=== PATIENT | female | born 1945 | race Caucasian/White ===

== ENCOUNTER 2017-10-12 17:18 | Inpatient (IN) | payer MEDICARE ==
[2017-10-12] MEDS ORDERED: Magnesium Sulfate 2 GM/100 ML BAG ONE (17:59)
[2017-10-12] MEDS ORDERED: Bisacodyl 5 MG TAB PO PRN (20:09)
[2017-10-12] MEDS ORDERED: Loratadine 10 MG TAB PO PRN (20:09)
[2017-10-12] MEDS ORDERED: Diabetic Tussin 200 MG/10 ML UDCUP PO PRN (20:09)
[2017-10-12] MEDS ORDERED: Acetaminophen 325 MG TAB PO PRN (20:09)
[2017-10-12] MEDS ORDERED: Calcium Carbonate 500 MG ChewTAB PO PRN (20:09)
[2017-10-12] MEDS ORDERED: Senokot 8.6 MG TAB PO PRN (20:09)
[2017-10-12] MEDS ORDERED: hydrALAZINE 20 MG/ML VIAL SLOW IVP PRN (20:09)
[2017-10-12] MEDS ORDERED: Nitroglycerin 0.4 MG TAB (25 Tab Bottle) SL PRN (20:09)
[2017-10-12] MEDS ORDERED: cloNIDine 0.1 MG TAB PO PRN (20:09)
[2017-10-12] MEDS ORDERED: Benzonatate 100 MG CAP PO PRN (20:09)
[2017-10-12] MEDS ORDERED: Ondansetron HCl/PF 4 MG/2 ML Vial IVP PRN (20:09)
[2017-10-12] MEDS ORDERED: Mag-Al 1200 mg/1200 mg/30 ML UDCUP PO PRN (20:09)
[2017-10-12] MEDS ORDERED: traMADol HCl 50 MG TAB PO PRN (20:09)
[2017-10-12] MEDS: Famotidine 20 MG TAB PO SCH (20:33)
--- NOTE | 2017-10-12 21:59 | HP ---
PRIMARY CARE PHYSICIAN: Dr. Juliano Chin. PRIMARY VISUALIZER: Dr. Dexter Figueroa. CHIEF COMPLAINT: Shortness of breath. HISTORY OF PRESENTING ILLNESS: Ms. Hugo is a very pleasant 72-year-old female with past m edical history of chronic obstructive pulmonary disease, hypertension and malnutrition, who presented to [facility] with the above-mentioned complaint. History is mainly obtained by the p atient herself and electronic medical records have been reviewed. Case has been discussed with the a dmitting ER physician, Dr. Gar. The patient was last admitted to our facility in 10/2016 and was discharged on 11/22/2016. At that time, she was treated for acute hypoxic respiratory failure due t o chronic obstructive pulmonary disease exacerbation. Reportedly, the patient went home on hospice a t that time, but later was discharged from the hospice services, which she did not need according to herself. She reports that she was on oxygen with hospice, but when the hospice services were discont inued oxygen was also discontinued. She reports that normally her oxygen saturation is in high 90s. Today, she presented via EMS to [facility]. She reports that she has some cough with c lear phlegm for the last few days. She reports congestion and feeling feverish. She started to have worsening shortness of breath for the last 2 days. She denies any chest pain. She denies any other recent illnesses. She denies any orthopnea, PND or edema. It is unclear what her oxygen saturation was in [facility]. She was transferred to our emergency room with 48 hours oxygen and her saturation was 96%. She has received multiple nebulizer s as well as IV steroids and magnesium oxide of her possible COPD exacerbation. She is being admitte d for same. Reportedly, her chest x-ray did not show any infiltrate or edema. The patient reports t hat she has been taking her nebulizers and Symbicort regularly without any benefit in her breathing. She also has heard herself wheezing significantly. I discussed the CODE STATUS once again for this patient. Previously, she has been a do not intubate, but after some discussion at this time; she wanted to be a FULL CODE if it needs to be. PAST MEDICAL HISTORY: 1. COPD. 2. Hypertension. 3. Protein-calorie malnutrition. 4. History of failure to thrive. 5. History of colonic polyps, status post resection. 6. History of syncopal episodes in the past. 7. History of tobacco abuse. PAST SURGICAL HISTORY: 1. Oral surgery. 2. Hernia repair. 3. History of polyp removal. 4. History of EGD showing chronic inactive gastritis and focal intestinal metaplasia. 5. Appendectomy. 6. Hysterectomy. 7. Carpal tunnel surgery. SOCIAL HISTORY: She lives in [place]. The patient is a former tobacco abuser and has smoked multi ple years. She quit smoking in 10/2016. No history of drug or alcohol abuse. ALLERGIES: PENICILLIN, SULFA and CEPHALOSPORINS. CURRENT MEDICATIONS: As listed in the ER records. These are incomplete and would need to be further verified through her pharmacy in the morning. She takes the following, Exforge, unknown dose; potas sium gluconate 1 tablet in the morning; prednisone 10 mg in the morning; digoxin, unknown dose and Sy mbicort twice a day. FAMILY HISTORY: Denies any history of cardiac disease or premature cardiac . Denies any histor y of cancer or stroke. REVIEW OF SYSTEMS: It is difficult to obtain due to the patient's tiredness and difficulty with long conversation, but she feels much better now. It is negative except for those mentioned under HPI. Constitutional: Weight loss or gain, ability to conduct usual activities. Skin: Rash, itching. Eyes: Double vision, pain. ENT/Mouth: Nose bleeding, neck stiffness, pain, tenderness. Cardiovascular: Palpitations, dyspnea on exertion, orthopnea. Respiratory: Shortness of breath, wheezing, cough, hemoptysis, fever or night sweats. Gastrointestinal: Poor appetite, abdominal pain, heartburn, nausea, vomiting, constipation, or diarr hea. Genitourinary: Urgency, frequency, dysuria, nocturia. Musculoskeletal: Pain, swelling. Neurologic/Psychiatric: Anxiety, depression. Allergy/Immunologic: Skin rash, bleeding tendency. PHYSICAL EXAMINATION: VITAL SIGNS: Most recent vital signs include blood pressure 115/84, pulse of 108, respirations 22, t emperature 98.8, saturating 96% on 2 liters oxygen now. GENERAL: No acute distress. She is sitting upright in bed and having some mild respiratory distress with conversation, but is awake, alert and oriented x3. She appears thin and malnourished. HEENT: Mucous membrane is moist and pink. No oropharyngeal exudate or erythema. NECK: Supple without any lymphadenopathy, JVD or bruit. CHEST: Reveal decreased breath sounds bilaterally without any significant wheezes, rales or rhonchi. CARDIOVASCULAR: She is tachycardic and regular. Normal S1 and S2 heard. ABDOMEN: Soft, nontender and nondistended with positive bowel sounds. EXTREMITIES: Free of any cyanosis, clubbing or edema. NEUROLOGIC: Nonfocal. SKIN: Free of any rashes or bruises. Feels warm and dry to touch. PSYCHIATRIC: Normal affect. LABORATORY DATA: Reportedly, [facility] records showed normal lab values. I do not have access to jennifer [facility] reports unfortunately at this time. IMPRESSION AND PLAN: 1. Acute respiratory failure. This is secondary to acute chronic obstructive pulmonary disease exac erbation. The patient is being admitted to Intermediate Care Unit for this reason. At this time, brigitte rodriguez is a FULL CODE. Her symptoms have improved after the initial intervention in the emergency room. At this time, we will continue with IV steroids, IV antibiotics scheduled and p.r.n. nebulizers along with long-acting inhaled steroids. We will obtain a pulmonary consultation in the morning. She kennedy l be continued on continuous oxygen supplementation. If her symptoms worsen; we will start her on Bi PAP. 2. History of hypertension. We will restart her home medications once confirmed. 3. Severe protein-calorie malnutrition, BMI undetermined. At this time, the patient will be started on dietary supplements. She has had outpatient workup for this. Etiology is unclear. She will con tinue to follow up with her primary care physician. 4. Deep venous thrombosis and gastrointestinal prophylaxis. 5. Add p.r.n. medication orders. 6. CODE STATUS: FULL CODE discussed with the patient. DISPOSITION: Ms. Hugo is being admitted to [facility] for acute respiratory failure due to chronic obstru ctive pulmonary disease exacerbation. Further management will depend upon her clinical course. Michelle mated length of stay at this time is at least 2-3 midnights.
[2017-10-13 05:29] LABS: #Lymphocytes 0.3 thou/uL (1.20-3.40); #Monocytes 0.2 thou/uL (0.11-0.59); #Neutrophils 5.5 thou/uL (1.40-6.50); %Eosinophils 0.2 % (0.0-10.0); %Lymphocytes 5.5 % (21.0-51.0); %Monocytes 3.5 % (0.0-10.0); Hematocrit 41.8 % (36.0-47.0); Mean Platelet Volume 7.4 fL (7.4-10.4); Red Blood Cell (RBC) Count 4.49 mill/uL (4.20-5.40); White Blood Cell (WBC) Count 6.1 thou/uL (4.8-10.8)
[2017-10-13 05:50] LABS: Anion Gap 14 mmol/L (10-20); BUN (Urea Nitrogen) 13 mg/dL (9.8-20.1); Calc. Creatinine Clearance 60 mL/min (70-130); Calcium 9.2 mg/dL (7.8-10.44); Carbon Dioxide 23 mmol/L (23-31); Chloride 95 mmol/L (98-107); Estimated GFR-MDRD Greater than 90
[2017-10-13] MEDS: Mometasone/Formoterol 120 PUFF INHALER INH SCH ×2 (06:35→19:27)
[2017-10-13] MEDS ORDERED: cloNIDine 0.1 MG TAB PO PRN (07:25)
[2017-10-13] MEDS ORDERED: hydrOXYzine 10 MG TAB PO PRN (07:25)
[2017-10-13] MEDS: Diabetic Tussin 200 MG/10 ML UDCUP PO SCH ×4 (08:39→20:35)
[2017-10-13] MEDS: Diltiazem HCl SR 60 mg Capsule PO SCH (08:40)
[2017-10-13] MEDS: Vitami E (Dl,Tocopheryl Acet) 400 UNITS CAP PO SCH (08:41)
[2017-10-13] MEDS: Amlodipine 10 MG TAB PO SCH ×2 (08:44→12:17)
[2017-10-13] MEDS: Famotidine 20 MG TAB PO SCH ×2 (08:44→20:35)
[2017-10-13] MEDS: Fluticasone Propionate Nasal Spray 16 gm Bottle NASAL SCH (08:44)
[2017-10-13] MEDS: Digoxin 0.125 MG TAB PO SCH ×2 (08:44→09:15)
[2017-10-13] MEDS: Valsartan 80 MG TAB PO SCH ×2 (08:45→12:17)
[2017-10-13] MEDS: Enoxaparin Sodium 40 MG/0.4 ML SYRINGE SC SCH (08:47)
[2017-10-13] MEDS: Sodium Chloride 0.9% 1,000 ML IV SCH ×2 (09:10→20:36)
[2017-10-13] MEDS ORDERED: Magnesium 2 GM/NS 0.9% 100 ML 2 GM in Premix Bag 1 BAG IVPB SCH (11:30)
--- NOTE | 2017-10-13 11:54 | CON ---
DATE OF CONSULTATION: 10/13/2017 HISTORY: Aissatou Hugo is a 72-year-old female, a patient of Dr. Figueroa's who presents to the hospital with increasing shortness of breath, cough, congestion, unresponsive to usual medication at home. She called Dr. Chin who apparently told her to come to the hospital. MEDICATIONS FROM HOME: Include Ventolin inhaler, Catapres 0.1, DuoNebs, Symbicort, digoxin 0.25, aml odipine 10, prednisone 10, Atarax, Cardizem 60, Flonase. She continues to drink 3 beers a day. Quit smoking in October of last year. She has severe limitation to activity. PAST MEDICAL HISTORY: Chronic lung disease, COPD, asthma, alcohol abuse. PAST SURGICAL HISTORY: A loop recorder was seen on the chest x-ray, hysterectomy, appendectomy. REVIEW OF SYSTEMS: Otherwise unremarkable. PHYSICAL EXAMINATION: GENERAL: Mild distress. VITAL SIGNS: Blood pressure is 190/80, pulse 108, O2 sat 94%. CHEST: Chest revealed diffuse wheezing. CARDIAC: Sinus tachycardia. ABDOMEN: Soft, no masses. LABORATORY: Sodium 128, chronic, white count 6000, H&H 13 and 41, glucose 141. X-ray shows no acute infiltrates except for the loop recorder. IMPRESSION: 1. Chronic obstructive pulmonary disease exacerbation. 2. Bronchitis. 3. Former smoker. 4. Alcohol abuse. 5. Hyponatremia, chronic. PLAN: Empiric antibiotics have been initiated. Continue IV steroids, neb treatments, Dulera. I ord ered magnesium. I have increased the frequency of Nebs to q.4h. X-ray was read as a new infiltrate . I am not so sure she has a new infiltrate, though x-ray was taken elsewhere. I do not see an x-ra y on the computer here. Will notify Dr. Figueroa tomorrow.
--- NOTE | 2017-10-13 12:19 | PRG ---
DATE OF SERVICE: 10/13/2017 SUBJECTIVE: The patient seen and examined at the bedside. She is in IMCU B12, but she is still very short of breath and tired. She has some deep productive cough. Her appetite is fair. OBJECTIVE: VITAL SIGNS: Blood pressure is 165/90, pulse is 115, pulse oximetry is 97% on O2 by nasal cannula. GENERAL: She looks tired and exhausted. HEENT: Atraumatic, normocephalic. Eyes: Pupils are responding properly. Sclerae is nonicteric. C onjunctivae pinkish. Oral mucosa is somewhat dry. NECK: Supple, no lymphadenopathy. LUNGS: Bilateral rales present. Few wheezes bilaterally present too. No crackles. HEART: S1, S2, tachycardic. No S3, no S4, somewhat distant. No murmur. ABDOMEN: Soft, nontender, bowel sounds are present, no organomegaly. EXTREMITIES: No clubbing, cyanosis or edema. NEUROLOGIC: She is alert and oriented x4. There is no sensory or motor deficits present. Cranial n erves are intact. SKIN: No rash or erythema. LABORATORY DATA: White count of 6.1, hemoglobin of 13.9, hematocrit 41.8, platelet count is 256, jesus trophils 90.8. Sodium is 128, potassium 4.1, chloride 95, BUN 13, creatinine 0.62, glucose 141. The rest of chemistry within normal limits. MICROBIOLOGY: None. IMPRESSION: 1. Acute exacerbation of chronic obstructive pulmonary disease which was triggered by some viral upp er respiratory tract infection. 2. Hyponatremia and hypochloremia. This could be related to volume depletion. We started her on in travenous fluids. 3. History of hypertension. Blood pressure is elevated and we are going to restart her amlodipine a nd digoxin. 4. Sinus tachycardia. This could be related to her nebulizer she is on now. 5. Severe protein calorie malnutrition with probably related to her advanced chronic obstructive pul monary disease. PLAN: She is going to continue on her current regimen of her IV steroids, inhaled steroids and Levaq uin. She will be restarted on her home meds. We will continue PT. Dr. Figueroa will see her for pulmon eddie consultation. We will give her normal saline at 100 mL per hour and she will continue on DVT and PUD prophylaxis.
[2017-10-13 13:09] LABS: Oxyhemoglobin 95.4 % (94.0-97.0); Sodium 131 mmol/L (135-148)
[2017-10-13 13:11] LABS: Mode 3L/M NASAL CANNULA
[2017-10-13] MEDS: Albuterol Sulfate 2.5 mg/3 ml Neb NEB SCH ×5 (13:49→21:46)
[2017-10-13] MEDS: Lorazepam 1 MG TAB PO PRN (21:39)
[2017-10-14] MEDS: Diabetic Tussin 200 MG/10 ML UDCUP PO SCH ×6 (00:02→20:41)
[2017-10-14] MEDS: Albuterol Sulfate 2.5 mg/3 ml Neb NEB SCH ×6 (00:08→09:39)
[2017-10-14] MEDS: Sodium Chloride 0.9% 1,000 ML IV SCH ×3 (05:52→21:00)
[2017-10-14] MEDS: Mometasone/Formoterol 120 PUFF INHALER INH SCH ×2 (06:27→19:25)
[2017-10-14 08:22] LABS: #Lymphocytes 0.5 thou/uL (1.20-3.40); #Monocytes 0.5 thou/uL (0.11-0.59); #Neutrophils 8.2 thou/uL (1.40-6.50); %Eosinophils 0.1 % (0.0-10.0); %Lymphocytes 4.9 % (21.0-51.0); %Monocytes 5.2 % (0.0-10.0); Hematocrit 43.7 % (36.0-47.0); Red Blood Cell (RBC) Count 4.65 mill/uL (4.20-5.40); White Blood Cell (WBC) Count 9.1 thou/uL (4.8-10.8)
[2017-10-14 08:41] LABS: Anion Gap 12 mmol/L (10-20); BUN (Urea Nitrogen) 14 mg/dL (9.8-20.1); Calc. Creatinine Clearance 59 mL/min (70-130); Calcium 9.4 mg/dL (7.8-10.44); Carbon Dioxide 25 mmol/L (23-31); Chloride 99 mmol/L (98-107); Estimated GFR-MDRD Greater than 90
--- NOTE | 2017-10-14 08:42 | PRG ---
DATE OF SERVICE: 10/14/2017 SUBJECTIVE: The patient is seen and examined at bedside. She is feeling slightly better. Her short ness of breath slightly improved, but it is still very significant despite of all measures. She did not have any bowel movements for the last couple of days. We will wait until tomorrow since she did not eat much in the last few days. OBJECTIVE: VITAL SIGNS: Blood pressure is 177/85, pulse is 96.5, respiratory rate is 22, pulse is 118, O2 satur ation is 92% on 3 liters by nasal cannula. GENERAL: She looks sick and tired, but slightly better than yesterday. HEENT: Eyes: Pupils are responding to light properly. Sclerae is nonicteric. Oral mucosa is moist . NECK: Supple. LUNGS: Bilateral rales and wheezes present. Mild to moderate. CARDIOVASCULAR: S1, S2, tachycardic, no S3, no S4. ABDOMEN: Soft, nontender, nondistended. EXTREMITIES: No clubbing, cyanosis or edema. NEUROLOGIC: Intact. LABORATORY DATA: Showed ABGs; pH of 7.42, pCO2 of 37.8, pO2 84.3, base excess -0.5, sodium of 131, p otassium 3.8, chloride 91, ionized calcium 1.2. CBC and BMP are pending this morning. MICROBIOLOGY: None. IMPRESSION: 1. Acute exacerbation of chronic obstructive pulmonary disease triggered by viral upper respiratory tract infection, somewhat better, but still in very serious condition, although her ABG is showing th at she is oxygenating well and she is not retaining any CO2. Yesterday, director of corporate communications increased the frequency of her DuoNeb to every 2 hours and she was given magnesium, which probably resulted in a be tter respiratory drive. 2. Hyponatremia and hypochloremia, based on ABGs, it is better. We will slow down her IV fluids to 75 mL per hour on normal saline. We will obtain CBC and BMP this morning. 3. Sinus tachycardia, which is related to most likely medications with agonist use. 4. Severe protein calorie malnutrition and history of alcohol abuse, most likely this is multifactor ial since she has chronic illness and she is receiving some additional nutrition. 5. History of hypertension, which is labile and she is back on her digoxin and amlodipine. PLAN: Continue her current regimen. We will see what director of corporate communications has to do over on the top of her quite intense regimen and we will continue her nutritional supplementation and IV fluids. She will continue on deep venous thrombosis prophylaxis with Lovenox and peptic ulcer disease prophylaxis with H2 karla.
[2017-10-14] MEDS: Fluticasone Propionate Nasal Spray 16 gm Bottle NASAL SCH (09:02)
[2017-10-14] MEDS: Vitami E (Dl,Tocopheryl Acet) 400 UNITS CAP PO SCH (09:02)
[2017-10-14] MEDS: Diltiazem HCl SR 60 mg Capsule PO SCH (09:03)
[2017-10-14] MEDS: Digoxin 0.125 MG TAB PO SCH (09:03)
[2017-10-14] MEDS: Enoxaparin Sodium 40 MG/0.4 ML SYRINGE SC SCH (09:04)
[2017-10-14] MEDS: Famotidine 20 MG TAB PO SCH ×2 (09:04→20:41)
[2017-10-14] MEDS: VALSARTAN PO SCH (09:04)
[2017-10-14] MEDS: AMLODIPINE PO SCH (09:04)
[2017-10-14] MEDS: Lorazepam 1 MG TAB PO PRN (09:09)
[2017-10-14] MEDS ORDERED: Magnesium Sulfate 3 GM in Sodium Chloride 0.9% 100 ML IVPB SCH (11:30)
[2017-10-14] MEDS: Morphine PF 1 MG/ML SYR IVP PRN (15:11)
--- NOTE | 2017-10-14 17:50 | PRG ---
DATE OF SERVICE: 10/14/2017 SUBJECTIVE: Ms. Hugo is afebrile. OBJECTIVE: VITAL SIGNS: Heart rate is 91, it was 113 earlier. Respiratory rate is in the teens. Oximetry is i n the mid 90s. LUNGS: Clear and distant with a prolonged expiratory phase. HEART: Regular rhythm. ABDOMEN: Soft. LABORATORY DATA: White count 9.1, hemoglobin 14.3 and platelets 298,000. Sodium 132, potassium 3.8, chloride 99, bicarbonate 25, BUN 14 and creatinine 0.6. Blood gas yesterday 7.42, CO2 of 37 and PO2 of 84. IMPRESSION: 1. Chronic obstructive pulmonary disease exacerbation. 2. Recent tobacco use. 3. Severe anxiety. 4. History of heavy alcohol use in the past if I recall correctly. I feel she would benefit from noninvasive ventilation assistance. She does not like frequent nebulizer treatments. I recalled correctly morphine worked really well fo r her in the past with her anxiety associated with shortness of breath, so this has been ordered. I ordered some more magnesium. We will continue nebulized treatments, steroids. We will order an x-ra y for in the morning shows a DNR with hospice for a while, but this was rescinded, I have seen her fe w times in the office, then she had cut back significantly on her alcohol intake. She also was not s moking until recently.
[2017-10-15] MEDS: Diabetic Tussin 200 MG/10 ML UDCUP PO SCH ×5 (00:34→20:32)
[2017-10-15] MEDS: Morphine PF 1 MG/ML SYR IVP PRN ×5 (06:48→20:21)
[2017-10-15] MEDS: VALSARTAN PO SCH (09:32)
[2017-10-15] MEDS: AMLODIPINE PO SCH (09:32)
[2017-10-15] MEDS: Digoxin 0.125 MG TAB PO SCH (09:33)
[2017-10-15] MEDS: Diltiazem HCl SR 60 mg Capsule PO SCH (09:33)
[2017-10-15] MEDS: Fluticasone Propionate Nasal Spray 16 gm Bottle NASAL SCH (09:34)
[2017-10-15] MEDS: Enoxaparin Sodium 40 MG/0.4 ML SYRINGE SC SCH (09:34)
[2017-10-15] MEDS: Famotidine 20 MG TAB PO SCH ×2 (09:34→20:33)
[2017-10-15] MEDS: Vitami E (Dl,Tocopheryl Acet) 400 UNITS CAP PO SCH (09:35)
--- NOTE | 2017-10-15 10:32 | PRG ---
DATE OF SERVICE: 10/15/2017 SUBJECTIVE: The patient was seen and examined at bedside. She was placed on BiPAP yesterday. She i s still on it. She desaturates very quickly when the mask is off, so she did not get much nutrition since she was placed on a mask since yesterday. OBJECTIVE: VITAL SIGNS: Blood pressure is 142/87, pulse is 106, temperature is 97.5, respiratory rate 12, O2 sa turation 98%. She is on BiPAP 12/5 with respiratory rate 16. HEENT: Her pupils are responding to light properly. Sclerae is nonicteric. Conjunctivae are pinkis h. LUNGS: Emphysematous. No wheezing, no rales. HEART: S1, S2, somewhat tachycardic, no S3, no S4. ABDOMEN: Soft and nontender. EXTREMITIES: No clubbing, cyanosis, or edema. NEUROLOGIC: She is awake and alert. She follows my commands. She is able to move her all 4 extremi ties. LABORATORY DATA: None. IMPRESSION: 1. Acute exacerbation of chronic obstructive pulmonary disease. The patient is on full regimen. Gerard rodriguez is on DuoNebs. She is on methylprednisolone 40 mg q.6 h. She is on intact steroids. She is on mo rphine 2 mg IV push q.2 h p.r.n. and despite all of these treatments, she required BiPAP. This is ma gregoria per cost analyst. 2. Hyponatremia and hypochloremia. We will obtain basic metabolic panel this morning to assess this . For now, we will continue her IV fluids normal saline at 75 mL per hour. 3. Sinus tachycardia related to nebulizers and most likely some hypoxic state. 4. Severe protein calorie malnutrition and history of alcohol abuse. No signs of alcohol withdrawal . We will give her banana bag to replace her missing minerals and electrolytes. 5. History of hypertension. The patient is back on her calcium channel karla and digoxin. PLAN: So plan is to continue current regimen, continue DVT prophylaxis with Lovenox. Continue PUD p rophylaxis with Pepcid.
[2017-10-15] MEDS: Mometasone/Formoterol 120 PUFF INHALER INH SCH ×2 (10:34→19:16)
--- NOTE | 2017-10-15 11:05 | RAD ---
FRONTAL RADIOGRAPH CHEST PORTABLE UPRIGHT: Date: 10/15/17 COMPARISON: 11/16/16. HISTORY: Respiratory distress. FINDINGS: A loop recorder overlies the left hilum. There is atherosclerotic calcification of the aortic arch. Lungs are hyperinflated with increased linear interstitial density noted bilaterally. These findings are unchanged. There is no pneumothorax, lobar consolidation, or alveolar edema. IMPRESSION: Stable pulmonary hyperinflation and interstitial prominence suggests COPD in the proper clinical sett ing. No lobar consolidation or alveolar edema. POS: DEEPALI
[2017-10-15] MEDS: Sodium Chloride 0.9% 1,000 ML IV SCH ×2 (12:04→22:00)
--- NOTE | 2017-10-15 12:10 | PRG ---
DATE OF SERVICE: 10/15/2017 The patient is on and off BiPAP. She struggles when she is off the BiPAP. PHYSICAL EXAMINATION: VITAL SIGNS: Temperature 97.5, pulse 126, rate 16, O2 saturation 98%, blood pressure 142/87. GENERAL: She is thin. She is cachectic. She is having to use accessory muscles for respirations wh en she is off the BiPAP. HEENT: Noted for bitemporal wasting. NECK: No JVD. LUNGS: Diminished breath sounds throughout. No active wheezing. CARDIOVASCULAR: S1, S2 regular. ABDOMEN: Soft. EXTREMITIES: No edema. ASSESSMENT: 1. Chronic obstructive pulmonary disease with exacerbation. 2. Acute on chronic respiratory failure. PLAN: Continue antibiotics, steroids, nebulization medications and BiPAP. She will be in the [facility] for quite some time.
[2017-10-16] MEDS: Diabetic Tussin 200 MG/10 ML UDCUP PO SCH ×7 (01:19→23:39)
[2017-10-16] MEDS: Mometasone/Formoterol 120 PUFF INHALER INH SCH ×2 (08:30→19:44)
[2017-10-16] MEDS: Digoxin 0.125 MG TAB PO SCH (08:42)
[2017-10-16] MEDS: Diltiazem HCl SR 60 mg Capsule PO SCH (08:42)
[2017-10-16] MEDS: VALSARTAN PO SCH (08:42)
[2017-10-16] MEDS: Morphine PF 1 MG/ML SYR IVP PRN ×4 (08:42→20:31)
[2017-10-16] MEDS: AMLODIPINE PO SCH (08:42)
[2017-10-16] MEDS: Famotidine 20 MG TAB PO SCH ×2 (08:43→20:54)
[2017-10-16] MEDS: Enoxaparin Sodium 40 MG/0.4 ML SYRINGE SC SCH (08:43)
[2017-10-16] MEDS: Fluticasone Propionate Nasal Spray 16 gm Bottle NASAL SCH (08:43)
[2017-10-16] MEDS: Vitami E (Dl,Tocopheryl Acet) 400 UNITS CAP PO SCH (08:44)
[2017-10-16] MEDS: Sodium Chloride 0.9% 1,000 ML IV SCH (08:50)
--- NOTE | 2017-10-16 11:06 | PRG ---
DATE OF SERVICE: 10/16/2017 SUBJECTIVE: The patient is seen and examined at bedside. She is in B12. She is still on a BiPAP, s ellie yesterday no change. There was no any unexpected events overnight. She is not able to eat much because she gets very short of breath when she takes the mask off. OBJECTIVE: VITAL SIGNS: Blood pressure is 165/96, pulse is 118, respiratory rate is 18, O2 saturation is 98, an d temperature is 97.5. HEAD: Atraumatic, normocephalic. LUNGS: Emphysematous, no rales or wheezing. HEART: S1 and S2, tachycardic. No S3, no S4. ABDOMEN: Soft, nontender, nondistended. EXTREMITIES: No clubbing, cyanosis, or edema. NEUROLOGIC: She is alert and oriented x3. There is no any motor deficits. LABORATORY DATA: Show none. MICROBIOLOGY: None. IMPRESSION: 1. Acute exacerbation of chronic obstructive pulmonary disease. Patient is on DuoNebs and IV steroi ds and inhaled steroids on IV morphine p.r.n. and still requires BiPAP treatment. She gets very shor t of breath very quickly as soon as the mask is off and this is managed by Dr. Guaman 2. Hyponatremia and hypochloremia. We will check BMP today. 3. Sinus tachycardia related to her current pulmonary status. 4. Severe protein-calorie malnutrition. The patient is offered to drink liquid food. 5. History of alcohol abuse. 6. Hypertension. She is continued on digoxin and diltiazem. PLAN: 1. Continue her levofloxacin. 2. Continue IV and inhaled steroids. 3. Continue morphine. 4. Continue DVT prophylaxis with Lovenox and SCDs.
--- NOTE | 2017-10-16 11:10 | PRG ---
DATE OF SERVICE: 10/16/2017 SUBJECTIVE: The patient is a little better today compared to yesterday. She has been on BiPAP almos t all night. PHYSICAL EXAMINATION: VITAL SIGNS: Her temperature is 97.5, pulse 110, respirations 18, O2 saturation 98%, blood pressure 160/103. HEENT: Unremarkable. NECK: No JVD. CHEST: Clear, but diminished breath sounds, no wheezing. CARDIAC: S1 and S2 regular. ABDOMEN: Soft. EXTREMITIES: No edema. ASSESSMENT: Chronic obstructive pulmonary disease with severe exacerbation. PLAN: I have encouraged her to come off BiPAP later this afternoon and take some nutrition. We will go ahead and maintain her steroids at the current dose. I will cut back her IV fluids.
[2017-10-17] MEDS: Morphine PF 1 MG/ML SYR IVP PRN ×5 (02:00→22:15)
[2017-10-17] MEDS: Diabetic Tussin 200 MG/10 ML UDCUP PO SCH ×5 (04:35→19:01)
[2017-10-17] MEDS: Sodium Chloride 0.9% 1,000 ML IV SCH (06:19)
[2017-10-17] MEDS: Mometasone/Formoterol 120 PUFF INHALER INH SCH ×2 (08:20→18:36)
[2017-10-17 08:38] LABS: #Lymphocytes 0.2 thou/uL (1.20-3.40); #Monocytes 0.7 thou/uL (0.11-0.59); #Neutrophils 6.1 thou/uL (1.40-6.50); %Basophils 0.3 % (0.0-1.0); %Eosinophils 0.3 % (0.0-10.0); %Lymphocytes 3.3 % (21.0-51.0); %Monocytes 10.2 % (0.0-10.0); Hematocrit 42.6 % (36.0-47.0); Mean Platelet Volume 7.9 fL (7.4-10.4); Red Blood Cell (RBC) Count 4.58 mill/uL (4.20-5.40); White Blood Cell (WBC) Count 7.1 thou/uL (4.8-10.8)
[2017-10-17 08:53] LABS: Anion Gap 11 mmol/L (10-20); BUN (Urea Nitrogen) 23 mg/dL (9.8-20.1); Calc. Creatinine Clearance 76 mL/min (70-130); Calcium 9.1 mg/dL (7.8-10.44); Carbon Dioxide 29 mmol/L (23-31); Chloride 100 mmol/L (98-107); Estimated GFR-MDRD Greater than 90
[2017-10-17] MEDS: Digoxin 0.125 MG TAB PO SCH (09:01)
[2017-10-17] MEDS: AMLODIPINE PO SCH (09:02)
[2017-10-17] MEDS: Diltiazem HCl SR 60 mg Capsule PO SCH (09:02)
[2017-10-17] MEDS: VALSARTAN PO SCH (09:02)
[2017-10-17] MEDS: Enoxaparin Sodium 40 MG/0.4 ML SYRINGE SC SCH (09:03)
[2017-10-17] MEDS: Fluticasone Propionate Nasal Spray 16 gm Bottle NASAL SCH (09:04)
[2017-10-17] MEDS: Vitami E (Dl,Tocopheryl Acet) 400 UNITS CAP PO SCH (09:04)
[2017-10-17] MEDS: Famotidine 20 MG TAB PO SCH ×2 (09:04→21:17)
[2017-10-17] MEDS: Levofloxacin 750 mg/D5W 500 MG in Premix Bag 1 BAG IVPB SCH (09:06)
--- NOTE | 2017-10-17 10:52 | PRG ---
DATE OF SERVICE: 10/17/2017 SUBJECTIVE: The patient seen and examined at bedside. She is doing slightly better. She did not re quire BiPAP 24 hours as before. She ate some food yesterday, so overall we see some progress. PHYSICAL EXAMINATION: VITAL SIGNS: Blood pressure is 157/63, pulse is 111, respiratory rate is 14, O2 saturation is 96% on 3-1/2 liters by nasal cannula. GENERAL: She looks tired and sick. Her body is emaciated. HEENT: Eye responded to write properly. Sclerae is nonicteric. Conjunctivae pinkish. Oral mucosa is slightly dry. NECK: Supple. LUNGS: Few wheezes bilaterally. CARDIOVASCULAR: S1, S2 normal, tachycardic, no S3, no S4. ABDOMEN: Soft, nontender, nondistended. EXTREMITIES: 1+ peripheral edema, symmetric bilaterally. NEUROLOGIC: She is alert and oriented x4. There is not any sensory or motor deficit present. Crani al nerves are intact. LABORATORY DATA: Showed pending CBC and chemistry. IMPRESSION: 1. Acute exacerbation of chronic obstructive pulmonary disease, off BiPAP at this point, on nasal ca nnula. She is going to continue her IV steroids. She is on methylprednisolone 40 every 6 hours. We will continue inhaled steroids too along with DuoNebs. 2. Hyponatremia and hypochloremia. Labs are pending. 3. Sinus tachycardia related to pulmonary status. 4. Severe protein malnutrition. The patient started eating better. She is able to eat. Since her pulmonary status improved to the point that she can be off the BiPAP mask. 5. History of alcohol abuse. We will change her IV fluids to banana bag. 6. Hypertension. Continue digoxin and diltiazem. We will continue Lovenox for DVT prophylaxis.
[2017-10-17] MEDS: Multivitamins, Adult 10 ML, Folic Acid 1 MG, Thiamine HCl 100 MG, Admixture Fee 1 EACH ... IV SCH ×5 (10:59)
--- NOTE | 2017-10-17 10:59 | PRG ---
DATE OF SERVICE: 10/17/2017 Ms. Hugo is off the BiPAP this morning. She feels better. She had no acute complaints. PHYSICAL EXAMINATION: VITAL SIGNS: Temperature 97.4, pulse 108, respirations 14, O2 sat 100% on 3.5 liters. HEENT: Unremarkable. NECK: No JVD. LUNGS: Clear to auscultation without wheezing. CARDIOVASCULAR: S1, S2 regular. ABDOMEN: Soft. EXTREMITIES: No edema. LABORATORY DATA: White blood cell count 7.1, hematocrit 42, platelet count 180. Sodium 136, potassi um 4.2, chloride 100, CO2 29, BUN 23, creatinine 0.5, glucose 143. ASSESSMENT: 1. Chronic obstructive pulmonary disease with exacerbation. 2. Acute on chronic respiratory failure. 3. Hyponatremia, which has improved. PLAN: 1. Increase activity as tolerated. 2. Hopefully, we can reduce the amount of time she is pending on BiPAP today. If she is able to sta y off the BiPAP, then she can probably be transferred to the floor tomorrow. 3. All questions were answered.
[2017-10-18] MEDS: Diabetic Tussin 200 MG/10 ML UDCUP PO SCH ×6 (04:00→21:08)
[2017-10-18] MEDS: Mometasone/Formoterol 120 PUFF INHALER INH SCH ×2 (07:32→18:58)
[2017-10-18] MEDS: Vitami E (Dl,Tocopheryl Acet) 400 UNITS CAP PO SCH (08:04)
[2017-10-18] MEDS: Famotidine 20 MG TAB PO SCH ×2 (08:04→21:09)
[2017-10-18] MEDS: Fluticasone Propionate Nasal Spray 16 gm Bottle NASAL SCH (08:04)
[2017-10-18] MEDS: Enoxaparin Sodium 40 MG/0.4 ML SYRINGE SC SCH (08:04)
[2017-10-18] MEDS: VALSARTAN PO SCH (08:05)
[2017-10-18] MEDS: Digoxin 0.125 MG TAB PO SCH (08:05)
[2017-10-18] MEDS: AMLODIPINE PO SCH (08:05)
[2017-10-18] MEDS: Diltiazem HCl SR 60 mg Capsule PO SCH (08:06)
[2017-10-18] MEDS: Levofloxacin 750 mg/D5W 500 MG in Premix Bag 1 BAG IVPB SCH (08:08)
[2017-10-18] MEDS: Morphine PF 1 MG/ML SYR IVP PRN (08:21)
[2017-10-18] MEDS: Multivitamins, Adult 10 ML, Folic Acid 1 MG, Thiamine HCl 100 MG, Admixture Fee 1 EACH ... IV SCH ×5 (11:21)
--- NOTE | 2017-10-18 12:51 | PDOC.PN ---
- Subjective Encounter Start Date: 10/18/17 Encounter Start Time: 12:40 Subjective: f/u for acute/chronic hypoxic resp failure on BiPAP. Slow improvement with -: requiring BiPAP NIMV. c/o white spots in mouth with irritation. -: Still SOB with minimal activity. - Objective Resuscitation Status: Resuscitation Status FULL:Full Resuscitation MAR Reviewed: Yes Vital Signs & Weight: Vital Signs (12 hours) Temp Pulse Resp BP Pulse Ox 10/18/17 11:51 97.9 F 115 H 24 H 152/78 H 97 10/18/17 11:47 105 H 16 97 10/18/17 08:23 97.8 F 127 H 18 100 10/18/17 08:05 127 H 10/18/17 07:26 112 H 17 99 10/18/17 07:24 110 H 23 H 99 10/18/17 07:19 97.4 F L 97 18 165/86 H 100 10/18/17 04:21 97.3 F L 102 H 12 165/97 H 99 10/18/17 02:29 92 11 L 99 10/18/17 02:28 93 11 L 98 Weight Admit Weight 99 lb Weight 112 lb 1 oz I&O: 10/17/17 10/18/17 10/19/17 06:59 06:59 06:59 Intake Total 1620 2040 350 Output Total 1150 800 Balance 470 1240 350 Result Diagrams: 10/17/17 08:00 10/17/17 08:00 Radiology Reviewed by me: Yes (PCXR - hyperinflation) EKG Reviewed by me: Yes (Tele - sinus in 90's) Phys Exam - Physical Examination Constitutional: NAD alert, smiles, 3-4 word sentences white plaques on tongue HEENT: PERRLA Neck: no JVD, supple diminished in bases Cardiovascular: RRR Gastrointestinal: soft, non-tender, no distention, positive bowel sounds mild UE edema Musculoskeletal: pulses present Neurological: normal sensation, moves all 4 limbs Psychiatric: A&O x 3 Skin: normal turgor, cap refill <2 seconds Dx/Plan (1) Acute and chronic respiratory failure with hypoxia Code(s): J96.21 - ACUTE AND CHRONIC RESPIRATORY FAILURE WITH HYPOXIA Status: Acute Comment: slow improvement, wean BiPAP as tolerated, Solumedrol, Dulera, Duonebs (2) COPD with exacerbation Code(s): J44.1 - CHRONIC OBSTRUCTIVE PULMONARY DISEASE W (ACUTE) EXACERBATION Status: Acute Comment: Change Levaquin 500mg daily (3) Severe protein-energy malnutrition Code(s): E43 - UNSPECIFIED SEVERE PROTEIN-CALORIE MALNUTRITION Status: Chronic Comment: Continue Ensure TID (4) Hyponatremia Code(s): E87.1 - HYPO-OSMOLALITY AND HYPONATREMIA Status: Acute Comment: Resolved, continue serial monitoring - Plan continue antibiotics, PT/OT, social psychologist, respiratory therapy, out of bed/ ambulate, DVT proph w/SCDs Continue aggressive pulmonary support -: Change Levaquin 500mg po daily -: Solumedrol 40mg IV q6h -: Start Nystatin SSW 5ml QID prn -: Wean off BiPAP for longer intervals * .
[2017-10-18] MEDS: Nystatin 500,000 UNITS/5 ML UDCUP SSW SCH ×3 (15:01→21:08)
[2017-10-18] MEDS ORDERED: Morphine 10 MG/ML CARPUJECT SLOW IVP PRN (17:00)
--- NOTE | 2017-10-18 20:47 | PRG ---
DATE OF SERVICE: 10/18/2017 SUBJECTIVE: Aissatou Hugo has improved compared to the last . OBJECTIVE: VITAL SIGNS: She is afebrile. She still has mild resting tachycardia, respiratory rates in the high teens to low 20s, oximetry is 99% on 3.5 liters, blood pressure 152/78. GENERAL: She is talking in longer sentences. LUNGS: Has distant breath sounds. CARDIOVASCULAR: Regular rhythm. ABDOMEN: Soft. LABORATORY DATA: White count 7.1 yesterday, hemoglobin 14 yesterday. Electrolytes yesterday were es sentially normal. IMPRESSION: 1. Severe chronic obstructive pulmonary disease with an exacerbation on top of this. 2. Past DO NOT RESUSCITATE status with hospice. She rescinded that as an outpatient. 3. Past and probably ongoing significant alcohol intake so she admits to liking to drink tequila now . She was drinking, if I remember correctly, [place] cream with coffee all morning long. In any event , she appears to be clinically improved, although her prognosis over the next year or two is quite po or if she survives this hospitalization. She still continues nocturnal support with BiPAP.
[2017-10-18] MEDS ORDERED: Multivitamins, Adult 10 ML, Folic Acid 1 MG, Thiamine HCl 100 MG, Admixture Fee 1 EACH ... IV SCH ×5 (21:00)
[2017-10-19] MEDS: Diabetic Tussin 200 MG/10 ML UDCUP PO SCH ×6 (01:11→21:19)
--- NOTE | 2017-10-19 09:19 | PRG ---
DATE OF SERVICE: 10/19/2017 SUBJECTIVE: She is little worse today in terms of needing the BiPAP more. PHYSICAL EXAMINATION: VITAL SIGNS: Her temperature is 97.5, pulse 117, respiration 18, O2 saturation 92%, blood pressure 1 58/94. HEENT: Unremarkable. NECK: Supple. No JVD. CHEST: Clear but diminished. CARDIAC: S1, S2 regular. ABDOMEN: Soft. EXTREMITIES: No edema. LABORATORY DATA: No labs were done today. ASSESSMENT: Chronic obstructive pulmonary disease exacerbation. PLAN: 1. Continue BiPAP as needed. 2. Continue IV steroids. 3. Continue nebulization treatments. 4. Likely to need IMCU for several more days given her dependency on BiPAP.
[2017-10-19] MEDS: Enoxaparin Sodium 40 MG/0.4 ML SYRINGE SC SCH (09:44)
[2017-10-19] MEDS: Famotidine 20 MG TAB PO SCH ×2 (09:44→21:27)
[2017-10-19] MEDS: Fluticasone Propionate Nasal Spray 16 gm Bottle NASAL SCH (09:45)
[2017-10-19] MEDS: Vitami E (Dl,Tocopheryl Acet) 400 UNITS CAP PO SCH (09:45)
[2017-10-19] MEDS: AMLODIPINE PO SCH (09:46)
[2017-10-19] MEDS: Digoxin 0.125 MG TAB PO SCH (09:46)
[2017-10-19] MEDS: Nystatin 500,000 UNITS/5 ML UDCUP SSW SCH ×4 (09:46→21:19)
[2017-10-19] MEDS: Diltiazem HCl SR 60 mg Capsule PO SCH (09:46)
[2017-10-19] MEDS: VALSARTAN PO SCH (09:46)
[2017-10-19] MEDS: Lorazepam 1 MG TAB PO PRN ×2 (11:54→21:25)
--- NOTE | 2017-10-19 15:00 | PDOC.PN ---
- Subjective Encounter Start Date: 10/19/17 Encounter Start Time: 14:50 Subjective: f/u for acute hypoxic resp failure secondary to COPD exacerbation. -: Nocturnal BiPAP continues with removal for daytime. Still SOB at -: rest. - Objective Resuscitation Status: Resuscitation Status FULL:Full Resuscitation MAR Reviewed: Yes Vital Signs & Weight: Vital Signs (12 hours) Temp Pulse Resp BP Pulse Ox 10/19/17 12:05 97.9 F 118 H 20 158/88 H 98 10/19/17 11:26 115 H 19 96 10/19/17 09:46 117 H 10/19/17 08:07 97.5 F L 117 H 19 92 L 10/19/17 07:34 112 H 94 L 10/19/17 07:33 112 H 18 94 L 10/19/17 04:36 96.7 F L 118 H 14 158/94 H 97 Weight Admit Weight 99 lb Weight 108 lb 2 oz I&O: 10/18/17 10/19/17 10/20/17 06:59 06:59 06:59 Intake Total 2040 1710 350 Output Total 800 875 400 Balance 1240 835 -50 Result Diagrams: 10/17/17 08:00 10/17/17 08:00 EKG Reviewed by me: Yes (Tele - Sinus tachycardia in low 100's) Phys Exam - Physical Examination alert, responsive, mild respiratory distress HEENT: oral pharynx no lesions Neck: no JVD, supple diminished in bases coarse breath sounds bilat Cardiovascular: RRR Gastrointestinal: soft, non-tender, no distention, positive bowel sounds bilateral UE edema Musculoskeletal: pulses present Neurological: normal sensation, moves all 4 limbs Psychiatric: A&O x 3 Skin: normal turgor, cap refill <2 seconds Dx/Plan (1) Acute and chronic respiratory failure with hypoxia Code(s): J96.21 - ACUTE AND CHRONIC RESPIRATORY FAILURE WITH HYPOXIA Status: Acute Comment: slow improvement, wean BiPAP as tolerated, Solumedrol, Dulera, Duonebs (2) COPD with exacerbation Code(s): J44.1 - CHRONIC OBSTRUCTIVE PULMONARY DISEASE W (ACUTE) EXACERBATION Status: Acute Comment: Change Levaquin 500mg daily (3) Severe protein-energy malnutrition Code(s): E43 - UNSPECIFIED SEVERE PROTEIN-CALORIE MALNUTRITION Status: Chronic Comment: Continue Ensure TID (4) Hyponatremia Code(s): E87.1 - HYPO-OSMOLALITY AND HYPONATREMIA Status: Acute Comment: Resolved, continue serial monitoring - Plan continue antibiotics, PT/OT, social security benefits interviewer, respiratory therapy, out of bed/ ambulate, DVT proph w/SCDs Stable currently -: Continue Solumedrol, Dulera, Duonebs -: Continue Levaquin 500mg po daily -: Saline Lock IVF -: Lasix 20mg IV q12h * Nocturnal BiPAP
[2017-10-19] MEDS ORDERED: Furosemide 20 MG/2 ML VIAL SLOW IVP SCH (15:30)
[2017-10-19] MEDS: Mometasone/Formoterol 120 PUFF INHALER INH SCH ×2 (19:02→19:04)
[2017-10-20] MEDS: Diabetic Tussin 200 MG/10 ML UDCUP PO SCH ×6 (01:20→20:51)
[2017-10-20] MEDS: Furosemide 20 MG/2 ML VIAL SLOW IVP SCH ×2 (06:03→13:46)
[2017-10-20] MEDS: Mometasone/Formoterol 120 PUFF INHALER INH SCH ×2 (07:51→18:21)
[2017-10-20] MEDS: Nystatin 500,000 UNITS/5 ML UDCUP SSW SCH ×4 (08:36→20:57)
[2017-10-20] MEDS: Digoxin 0.125 MG TAB PO SCH (08:36)
[2017-10-20] MEDS: AMLODIPINE PO SCH (08:36)
[2017-10-20] MEDS: Lorazepam 1 MG TAB PO PRN ×2 (08:36→20:58)
[2017-10-20] MEDS: VALSARTAN PO SCH (08:36)
[2017-10-20] MEDS: Diltiazem HCl SR 60 mg Capsule PO SCH (08:36)
[2017-10-20] MEDS: Famotidine 20 MG TAB PO SCH ×2 (08:38→20:51)
[2017-10-20] MEDS: Enoxaparin Sodium 40 MG/0.4 ML SYRINGE SC SCH (08:38)
[2017-10-20] MEDS: Fluticasone Propionate Nasal Spray 16 gm Bottle NASAL SCH (08:38)
[2017-10-20] MEDS: Vitami E (Dl,Tocopheryl Acet) 400 UNITS CAP PO SCH (08:39)
--- NOTE | 2017-10-20 08:59 | PRG ---
DATE OF SERVICE: 10/20/2017 Ms. Hugo is off the BiPAP this morning, actually looks a little better. She says she gets very shor t of breath when she tries to get up to a chair. PHYSICAL EXAMINATION: VITAL SIGNS: Temperature 97.6, pulse 120, respirations 20, O2 sat 93% on 3 liters, blood pressure 18 1/79. HEENT: Unremarkable. NECK: No JVD. LUNGS: Diminished breath sounds, but no wheezing. CARDIAC: S1 and S2 regular. ABDOMEN: Soft. EXTREMITIES: No edema. ASSESSMENT: 1. Chronic obstructive pulmonary disease with severe exacerbation. 2. Chronic hypoxic and hypercapnic respiratory failure. PLAN: We discussed extending her time off BiPAP today. She needs to remain in Intermediate Care whi le BiPAP is still in place. We are continuing aggressive nebulization treatments, IV antibiotics, an d IV steroids.
--- NOTE | 2017-10-20 19:06 | PDOC.PN ---
- Subjective Encounter Start Date: 10/20/17 Encounter Start Time: 18:55 Subjective: f/u for acute hypoxic resp failure and COPD exacerbation. States still -: easily SOB with minimal activity. Trials off BiPAP extending. No fever or -: chills. - Objective Resuscitation Status: Resuscitation Status FULL:Full Resuscitation MAR Reviewed: Yes Vital Signs & Weight: Vital Signs (12 hours) Temp Pulse Pulse Pulse Resp BP BP 10/20/17 18:21 121 H 20 10/20/17 18:20 121 H 20 10/20/17 16:00 97.8 F 109 H 19 10/20/17 14:20 123 H 22 H 10/20/17 11:22 113 H 20 10/20/17 11:00 97.3 F L 111 H 18 10/20/17 09:27 118 H 116 H 157/98 H 144/87 H 10/20/17 08:36 120 H 10/20/17 08:27 97.6 F 120 H 20 10/20/17 07:54 10/20/17 07:53 118 H 20 10/20/17 07:50 112 H 22 H BP Pulse Ox Pulse Ox Pulse Ox 10/20/17 18:21 93 L 10/20/17 18:20 93 L 10/20/17 16:00 103/55 L 92 L 10/20/17 14:20 94 L 10/20/17 11:22 96 10/20/17 11:00 144/85 H 94 L 10/20/17 09:27 93 L 95 10/20/17 08:36 10/20/17 08:27 93 L 10/20/17 07:54 94 L 10/20/17 07:53 94 L 10/20/17 07:50 93 L Weight Admit Weight 99 lb Weight 108 lb 2 oz I&O: 10/19/17 10/20/17 10/21/17 06:59 06:59 06:59 Intake Total 1710 850 440 Output Total 875 2200 Balance 835 -1350 440 Result Diagrams: 10/17/17 08:00 10/17/17 08:00 EKG Reviewed by me: Yes (Tele - sinus tachycardia in low 110's) Phys Exam - Physical Examination Constitutional: NAD frail and ill-appearing HEENT: PERRLA, oral pharynx no lesions Neck: no JVD, supple diminished in bases bilat Respiratory: no wheezing tachycardia Gastrointestinal: soft, non-tender, no distention, positive bowel sounds Musculoskeletal: no edema, pulses present Neurological: normal sensation, moves all 4 limbs Psychiatric: A&O x 3 Skin: normal turgor, cap refill <2 seconds Dx/Plan (1) Acute and chronic respiratory failure with hypoxia Code(s): J96.21 - ACUTE AND CHRONIC RESPIRATORY FAILURE WITH HYPOXIA Status: Acute Comment: slow improvement, wean BiPAP as tolerated, Solumedrol, Dulera, Duonebs, add Spiriva 18mc inh daily (2) COPD with exacerbation Code(s): J44.1 - CHRONIC OBSTRUCTIVE PULMONARY DISEASE W (ACUTE) EXACERBATION Status: Acute Comment: Change Levaquin 500mg daily (3) Severe protein-energy malnutrition Code(s): E43 - UNSPECIFIED SEVERE PROTEIN-CALORIE MALNUTRITION Status: Chronic Comment: Continue Ensure TID, PT for mobilization (4) Hyponatremia Code(s): E87.1 - HYPO-OSMOLALITY AND HYPONATREMIA Status: Acute Comment: Resolved, continue serial monitoring - Plan continue antibiotics, PT/OT, social media content specialist, respiratory therapy, DVT proph w/ SCDs Continue supportive mgmt -: Add Spiriva handihaler 18mcg daily -: Continue Solumedrol, Duobebs, Dulera -: Continue Levaquin 500mg daily -: PT for mobilization, OOB * .
[2017-10-21] MEDS: Diabetic Tussin 200 MG/10 ML UDCUP PO SCH ×6 (04:08→22:11)
[2017-10-21] MEDS: Furosemide 20 MG/2 ML VIAL SLOW IVP SCH (06:23)
[2017-10-21] MEDS ORDERED: Spiriva 18 MCG CAP (Box of 5 Caps) INH SCH (07:00)
[2017-10-21] MEDS: Mometasone/Formoterol 120 PUFF INHALER INH SCH ×2 (07:38→19:24)
--- NOTE | 2017-10-21 08:58 | PRG ---
DATE OF SERVICE: 10/21/2017 She is better. She did use BiPAP last night, but was off of it during the day yesterday. PHYSICAL EXAMINATION: VITAL SIGNS: Temperature 96.8, pulse 122, respirations 24, 94% on 2 liters, blood pressure 149/107. HEENT: Unremarkable. NECK: No JVD. LUNGS: Diminished, but clear breath sounds. CARDIAC: S1 and S2 regular. ABDOMEN: Soft. EXTREMITIES: No edema. No new labs were obtained today. ASSESSMENT: 1. Chronic obstructive pulmonary disease with exacerbation. 2. Chronic respiratory failure. PLAN: I told her to stay off BiPAP today as much as possible. Ultimately, she may be a candidate fo r Trilogy ventilator at night while she is at home. Palliative Care will be seeing her today. We wi ll continue her on the steroids and nebulization treatments. Dr. Fgiueroa will return tomorrow.
[2017-10-21] MEDS: Digoxin 0.125 MG TAB PO SCH (09:02)
[2017-10-21] MEDS: Lorazepam 1 MG TAB PO PRN ×2 (09:02→22:02)
[2017-10-21] MEDS: Nystatin 500,000 UNITS/5 ML UDCUP SSW SCH ×4 (09:02→21:17)
[2017-10-21] MEDS: VALSARTAN PO SCH (09:06)
[2017-10-21] MEDS: AMLODIPINE PO SCH (09:06)
[2017-10-21] MEDS: Diltiazem HCl SR 60 mg Capsule PO SCH ×2 (09:07→22:02)
[2017-10-21] MEDS: Enoxaparin Sodium 40 MG/0.4 ML SYRINGE SC SCH (09:14)
[2017-10-21] MEDS: Fluticasone Propionate Nasal Spray 16 gm Bottle NASAL SCH (09:15)
[2017-10-21] MEDS: Vitami E (Dl,Tocopheryl Acet) 400 UNITS CAP PO SCH (09:15)
[2017-10-21] MEDS: Famotidine 20 MG TAB PO SCH ×2 (09:15→22:11)
--- NOTE | 2017-10-21 13:43 | PDOC.PN ---
- Subjective Encounter Start Date: 10/21/17 Encounter Start Time: 13:30 Subjective: f/u for A/C hypoxic resp failure with nocturnal BiPAP. Slow improvement -: overall. Still SOB at rest. - Objective Resuscitation Status: Resuscitation Status FULL:Full Resuscitation MAR Reviewed: Yes Vital Signs & Weight: Vital Signs (12 hours) Temp Pulse Resp BP Pulse Ox 10/21/17 12:00 97.2 F L 97 23 H 144/86 H 91 L 10/21/17 11:03 129 H 28 H 91 L 10/21/17 11:00 131 H 28 H 91 L 10/21/17 09:02 135 H 10/21/17 08:00 96.8 F L 122 H 24 H 94 L 10/21/17 07:54 96.8 F L 122 H 24 H 149/107 H 94 L 10/21/17 07:37 107 H 20 95 10/21/17 04:00 97.9 F 111 H 22 H 165/72 H 90 L 10/21/17 02:23 102 H 22 H 92 L 10/21/17 02:22 102 H 22 H 92 L Weight Admit Weight 99 lb Weight 108 lb 2 oz I&O: 10/20/17 10/21/17 10/22/17 06:59 06:59 06:59 Intake Total 850 1820 Output Total 2200 700 Balance -1350 1120 Result Diagrams: 10/17/17 08:00 10/17/17 08:00 EKG Reviewed by me: Yes (Tele - Sinus tach in 110's) Phys Exam - Physical Examination frail, smiling, SOB HEENT: PERRLA, oral pharynx no lesions Neck: no JVD, supple diminished bilat tachycardic Gastrointestinal: soft, non-tender, no distention, positive bowel sounds Musculoskeletal: no edema, pulses present Neurological: normal sensation, moves all 4 limbs Psychiatric: A&O x 3 Skin: normal turgor, cap refill <2 seconds Dx/Plan (1) Acute and chronic respiratory failure with hypoxia Code(s): J96.21 - ACUTE AND CHRONIC RESPIRATORY FAILURE WITH HYPOXIA Status: Acute Comment: slow improvement, wean BiPAP as tolerated, Solumedrol, Dulera, Duonebs, add Spiriva 18mc inh daily (2) COPD with exacerbation Code(s): J44.1 - CHRONIC OBSTRUCTIVE PULMONARY DISEASE W (ACUTE) EXACERBATION Status: Acute Comment: Change Levaquin 500mg daily (3) Severe protein-energy malnutrition Code(s): E43 - UNSPECIFIED SEVERE PROTEIN-CALORIE MALNUTRITION Status: Chronic Comment: Continue Ensure TID, PT for mobilization (4) Hyponatremia Code(s): E87.1 - HYPO-OSMOLALITY AND HYPONATREMIA Status: Acute Comment: Resolved, continue serial monitoring (5) Sinus tachycardia Code(s): R00.0 - TACHYCARDIA, UNSPECIFIED Status: Acute Comment: Multifactorial, increase Cardizem 60mg BID, continue Digoxin 0.125mg daily - Plan continue antibiotics, PT/OT, social service assistant, respiratory therapy, out of bed/ ambulate, DVT proph w/SCDs Slow clinical improvement -: Still requiring intermittent BiPAP -: D/C Lasix -: Increase Cardizem 60mg BID -: Continue pulmonary support * .
[2017-10-22] MEDS: Diabetic Tussin 200 MG/10 ML UDCUP PO SCH ×6 (01:16→21:15)
[2017-10-22] MEDS: Mometasone/Formoterol 120 PUFF INHALER INH SCH ×2 (06:47→19:02)
[2017-10-22] MEDS: VALSARTAN PO SCH (09:17)
[2017-10-22] MEDS: AMLODIPINE PO SCH (09:17)
[2017-10-22] MEDS: Lorazepam 1 MG TAB PO PRN ×2 (09:18→21:16)
[2017-10-22] MEDS: Nystatin 500,000 UNITS/5 ML UDCUP SSW SCH ×4 (09:18→21:15)
[2017-10-22] MEDS: Digoxin 0.125 MG TAB PO SCH (09:18)
[2017-10-22] MEDS: Diltiazem HCl SR 60 mg Capsule PO SCH ×2 (09:18→21:14)
[2017-10-22] MEDS: Enoxaparin Sodium 40 MG/0.4 ML SYRINGE SC SCH (09:26)
[2017-10-22] MEDS: Famotidine 20 MG TAB PO SCH ×2 (09:26→21:15)
[2017-10-22] MEDS: Vitami E (Dl,Tocopheryl Acet) 400 UNITS CAP PO SCH (09:27)
[2017-10-22] MEDS: Fluticasone Propionate Nasal Spray 16 gm Bottle NASAL SCH (09:27)
--- NOTE | 2017-10-22 12:54 | PDOC.PN ---
- Subjective Encounter Start Date: 10/22/17 Encounter Start Time: 09:20 Pt seen for followup re: acute on chronic respiratory failure. Denies chest pain. SOBOE+. No fevers. - Objective Resuscitation Status: Resuscitation Status FULL:Full Resuscitation MAR Reviewed: Yes Vital Signs & Weight: Vital Signs (12 hours) Temp Pulse Resp BP Pulse Ox 10/22/17 11:06 97.6 F 100 20 134/72 93 L 10/22/17 10:17 108 H 16 10/22/17 09:18 112 H 10/22/17 07:47 97.3 F L 106 H 20 91 L 10/22/17 07:16 97.3 F L 106 H 20 149/75 H 91 L 10/22/17 06:50 107 H 18 10/22/17 04:00 98.1 F 116 H 22 H 148/87 H 93 L 10/22/17 02:39 97 17 94 L 10/22/17 02:38 97 17 94 L Weight Admit Weight 99 lb Weight 108 lb 2 oz I&O: 10/21/17 10/22/17 10/23/17 06:59 06:59 06:59 Intake Total 1820 1470.5 Output Total 700 1450 Balance 1120 20.5 Result Diagrams: 10/17/17 08:00 10/17/17 08:00 EKG Reviewed by me: Yes (Tele: sinus tachycardia) Phys Exam - Physical Examination appears frail HEENT: moist MMs Neck: no JVD Respiratory: clear to auscultation bilateral Diminished air entry kimberly bases S1, S2, tachy Gastrointestinal: soft, non-tender Neurological: moves all 4 limbs Psychiatric: normal affect Dx/Plan (1) Acute and chronic respiratory failure with hypoxia Code(s): J96.21 - ACUTE AND CHRONIC RESPIRATORY FAILURE WITH HYPOXIA Status: Acute (2) Sinus tachycardia Code(s): R00.0 - TACHYCARDIA, UNSPECIFIED Status: Acute (3) COPD with exacerbation Code(s): J44.1 - CHRONIC OBSTRUCTIVE PULMONARY DISEASE W (ACUTE) EXACERBATION Status: Acute (4) Severe protein-energy malnutrition Code(s): E43 - UNSPECIFIED SEVERE PROTEIN-CALORIE MALNUTRITION Status: Chronic - Plan continue antibiotics, PT/OT, out of bed/ambulate, DVT proph w/SCDs * . Continue oxygen, steroids, antibiotics and bronchodilators. Continue PRN BiPAP. Review of Systems - Review of Systems Respiratory: Cough, Shortness of Breath, SOB with Excertion. negative: Dry, Hemoptysis, Pleuritic Pain, Sputum, Wheezing Cardiovascular: negative: Chest Pain, Palpitations, Orthopnea, Paroxysmal Noc. Dyspnea, Edema, Light Headedness - Medications/Allergies Allergies/Adverse Reactions: Allergies Allergy/AdvReac Type Severity Reaction Status Date / Time Penicillins Allergy Severe swelling, Verified 10/12/17 21:37 rash Sulfa (Sulfonamide Allergy Severe swelling, Verified 10/12/17 21:37 Antibiotics) rash cephalexin monohydrate Allergy Intermediate itching, Verified 10/12/17 21:37 [From Keflex] rash Medications: Current Medications Acetaminophen (Tylenol) 650 mg PO Q4H PRN PRN Reason: Headache/Fever or Pain Al Hydroxide/Mg Hydroxide (Maalox) 30 ml PO Q6H PRN PRN Reason: Heartburn or Indigestion Albuterol/Ipratropium (Duoneb) 3 ml NEB Q1RA-XD PRN PRN Reason: SOB &/or Wheezing Albuterol/Ipratropium (Duoneb) 3 ml NEB [id number] [facility] Last Admin: 10/22/17 10:17 Dose: 3 ml Benzonatate (Tessalon) 100 mg PO Q4H PRN PRN Reason: Cough Bisacodyl (Dulcolax) 10 mg PO DAILYPRN PRN PRN Reason: Constipation Calcium Carbonate (Tums) 1,000 mg PO Q4H PRN PRN Reason: Heartburn or Indigestion Cholecalciferol (Vitamin D3) 2,000 units PO DAILY [facility] Last Admin: 10/22/17 09:26 Dose: Not Given Clonidine (Catapres) 0.1 mg PO Q4H PRN PRN Reason: Systolic BP > 160 Digoxin (Lanoxin) 0.125 mg PO DAILY [facility] Last Admin: 10/22/17 09:18 Dose: 0.125 mg Diltiazem HCl (Cardizem Sr) 60 mg PO BID [facility] Last Admin: 10/22/17 09:18 Dose: 60 mg Enoxaparin Sodium (Lovenox) 40 mg SC 0900 [facility] Last Admin: 10/22/17 09:26 Dose: Not Given Famotidine (Pepcid) 20 mg PO BID [facility] Last Admin: 10/22/17 09:26 Dose: Not Given Fluticasone Propionate (Flonase Nasal [place]) 0 gm NASAL DAILY [facility] Last Admin: 10/22/17 09:27 Dose: Not Given Guaifenesin (Robitussin Sf) 200 mg PO Q4H [facility] Last Admin: 10/22/17 11:37 Dose: Not Given Hydralazine HCl (Apresoline) 10 mg SLOW IVP Q4H PRN PRN Reason: Systolic BP > 170 Levofloxacin (Levaquin) 500 mg PO 0600 [facility] Last Admin: 10/22/17 06:13 Dose: 500 mg Loratadine (Claritin) 10 mg PO DAILYPRN PRN PRN Reason: Sinus Symptoms Lorazepam (Ativan) 1 mg PO Q4H PRN PRN Reason: Anxiety/Agitation Last Admin: 10/22/17 09:18 Dose: 1 mg Methylprednisolone Sodium Succinate (Solu-Medrol) 20 mg IVP Q8HR [facility] Last Admin: 10/22/17 06:13 Dose: 20 mg Mometasone Furoate/Formoterol Fumar (Dulera 200 Mcg/5 Mcg Inhaler) 2 puff INH BID-RT [facility] Last Admin: 10/22/17 06:47 Dose: 2 puff Morphine Sulfate (Morphine) 4 mg SLOW IVP Q4H PRN PRN Reason: PAIN-SEVERE Last Admin: 10/19/17 04:40 Dose: 4 mg Nitroglycerin (Nitrostat) 0.4 mg SL Q5MIN PRN PRN Reason: Chest Pain Nystatin (Mycostatin) 500,000 units SSW QID [facility] Last Admin: 10/22/17 11:37 Dose: Not Given Ondansetron HCl (Zofran) 4 mg IVP Q6H PRN PRN Reason: Nausea/Vomiting Amlodipine/Valsartan (Exforge) 10/160 Mg Tablet 0 each PO DAILY [facility] Last Admin: 10/22/17 09:17 Dose: 1 each Senna (Senokot) 2 tab PO HSPRN PRN PRN Reason: Constipation Sodium Chloride (Flush - Normal Saline) 10 ml IVF Q12HR [facility] Last Admin: 10/22/17 09:19 Dose: 10 ml Sodium Chloride (Flush - Normal Saline) 10 ml IVF PRN PRN PRN Reason: Saline Flush Last Admin: 10/21/17 13:51 Dose: 10 ml Tramadol HCl (Ultram) 50 mg PO Q4H PRN PRN Reason: Moderate Pain (4-6) Vitamin E (Vitamin E) 400 units PO DAILY [facility] Last Admin: 10/22/17 09:27 Dose: Not Given
--- NOTE | 2017-10-22 16:42 | PRG ---
DATE OF SERVICE: 10/22/2017 SUBJECTIVE: Ms. Aissatou Hugo says she feels better than she felt on Wednesday. She is afebrile. She is actually getting the bedside commode with less dyspnea. OBJECTIVE: VITAL SIGNS: Heart rate 100, respiratory rate 20, oximetry is 93% and blood pressure 134/72. LUNGS: Remarkable for distant breath sounds. IMPRESSION: 1. End-stage obstructive lung disease. 2. Acute exacerbation of chronic obstructive pulmonary disease. 3. Acute on chronic respiratory failure. 4. Previous DNR status with hospice that she rescinded once she got home. 5. Anxiety responds to morphine. PLAN: Continue supportive care, physical therapy. She is not ready to be discharged. She will prob ably decline to go to a correction for physical therapy.
[2017-10-23] MEDS: Diabetic Tussin 200 MG/10 ML UDCUP PO SCH ×6 (02:31→20:10)
[2017-10-23] MEDS: Mometasone/Formoterol 120 PUFF INHALER INH SCH ×2 (06:52→19:03)
[2017-10-23] MEDS: Enoxaparin Sodium 40 MG/0.4 ML SYRINGE SC SCH (10:03)
[2017-10-23] MEDS: Vitami E (Dl,Tocopheryl Acet) 400 UNITS CAP PO SCH (10:04)
[2017-10-23] MEDS: Fluticasone Propionate Nasal Spray 16 gm Bottle NASAL SCH (10:04)
[2017-10-23] MEDS: Famotidine 20 MG TAB PO SCH ×2 (10:04→19:34)
[2017-10-23] MEDS: AMLODIPINE PO SCH (10:16)
[2017-10-23] MEDS: Digoxin 0.125 MG TAB PO SCH (10:16)
[2017-10-23] MEDS: Diltiazem HCl SR 60 mg Capsule PO SCH ×2 (10:16→21:06)
[2017-10-23] MEDS: VALSARTAN PO SCH (10:16)
[2017-10-23] MEDS: Nystatin 500,000 UNITS/5 ML UDCUP SSW SCH ×4 (10:17→21:05)
[2017-10-23] MEDS: Lorazepam 1 MG TAB PO PRN (10:23)
--- NOTE | 2017-10-23 12:18 | PRG ---
DATE OF SERVICE: 10/23/2017 SUBJECTIVE: Aissatou Hugo actually took shower this morning. She says she feels 100% better. OBJECTIVE: VITAL SIGNS: She is afebrile, heart rate is 108, respiratory rate 20, oximetry is 94 on 3 liters, bl ood pressure 130/70. LUNGS: Clear and distant. HEART: Regular rhythm. There is no new lab. IMPRESSION: 1. Chronic respiratory failure, acute decompensation. 2. Near end-stage obstructive lung disease. 3. Extreme deconditioning. 4. History of heavy alcohol abuse. 5. History of recent tobacco use. PLAN: Transfer to medical. We will continue with nocturnal BiPAP.
--- NOTE | 2017-10-23 12:25 | PDOC.PN ---
- Subjective Encounter Start Date: 10/23/17 Encounter Start Time: 09:40 Pt seen for followup re: acute on chronic respiratory failure. Feels better. No chest pain. - Objective Resuscitation Status: Resuscitation Status FULL:Full Resuscitation MAR Reviewed: Yes Vital Signs & Weight: Vital Signs (12 hours) Temp Pulse Resp BP Pulse Ox 10/23/17 11:14 106 H 20 96 10/23/17 10:16 108 H 10/23/17 08:38 94 L 10/23/17 08:00 97.5 F L 108 H 20 10/23/17 07:10 97.5 F L 108 H 20 130/70 93 L 10/23/17 06:52 103 H 20 95 10/23/17 06:35 95 10/23/17 06:33 103 H 20 95 10/23/17 04:00 97.9 F 92 22 H 126/69 92 L 10/23/17 02:03 100 19 93 L 10/23/17 02:01 94 17 93 L Weight Admit Weight 99 lb Weight 109 lb 3.2 oz I&O: 10/22/17 10/23/17 10/24/17 06:59 06:59 06:59 Intake Total 1470.5 1692 Output Total 1450 1100 300 Balance 20.5 592 -300 Result Diagrams: 10/17/17 08:00 10/17/17 08:00 EKG Reviewed by me: Yes (Tele: sinus tachycardia) Phys Exam - Physical Examination Constitutional: NAD HEENT: moist MMs Neck: supple Respiratory: clear to auscultation bilateral Cardiovascular: RRR Gastrointestinal: soft, non-tender Neurological: moves all 4 limbs Psychiatric: normal affect Dx/Plan (1) Acute and chronic respiratory failure with hypoxia Code(s): J96.21 - ACUTE AND CHRONIC RESPIRATORY FAILURE WITH HYPOXIA Status: Acute (2) Sinus tachycardia Code(s): R00.0 - TACHYCARDIA, UNSPECIFIED Status: Acute (3) COPD with exacerbation Code(s): J44.1 - CHRONIC OBSTRUCTIVE PULMONARY DISEASE W (ACUTE) EXACERBATION Status: Acute (4) Severe protein-energy malnutrition Code(s): E43 - UNSPECIFIED SEVERE PROTEIN-CALORIE MALNUTRITION Status: Chronic - Plan continue antibiotics, PT/OT, respiratory therapy, out of bed/ambulate, DVT proph w/SCDs * . Continue oxygen, steroids, bronchodilators and antibiotics. PCCM following. Review of Systems - Review of Systems Respiratory: Cough, Shortness of Breath, SOB with Excertion. negative: Dry, Hemoptysis, Pleuritic Pain, Sputum, Wheezing Cardiovascular: negative: Chest Pain, Palpitations, Orthopnea, Paroxysmal Noc. Dyspnea, Edema, Light Headedness - Medications/Allergies Allergies/Adverse Reactions: Allergies Allergy/AdvReac Type Severity Reaction Status Date / Time Penicillins Allergy Severe swelling, Verified 10/12/17 21:37 rash Sulfa (Sulfonamide Allergy Severe swelling, Verified 10/12/17 21:37 Antibiotics) rash cephalexin monohydrate Allergy Intermediate itching, Verified 10/12/17 21:37 [From Keflex] rash Medications: Current Medications Acetaminophen (Tylenol) 650 mg PO Q4H PRN PRN Reason: Headache/Fever or Pain Al Hydroxide/Mg Hydroxide (Maalox) 30 ml PO Q6H PRN PRN Reason: Heartburn or Indigestion Albuterol/Ipratropium (Duoneb) 3 ml NEB [id number] PRN PRN Reason: SOB &/or Wheezing Albuterol/Ipratropium (Duoneb) 3 ml NEB [id number] [facility] Last Admin: 10/23/17 11:14 Dose: 3 ml Benzonatate (Tessalon) 100 mg PO Q4H PRN PRN Reason: Cough Bisacodyl (Dulcolax) 10 mg PO DAILYPRN PRN PRN Reason: Constipation Calcium Carbonate (Tums) 1,000 mg PO Q4H PRN PRN Reason: Heartburn or Indigestion Cholecalciferol (Vitamin D3) 2,000 units PO DAILY [facility] Last Admin: 10/23/17 10:03 Dose: Not Given Clonidine (Catapres) 0.1 mg PO Q4H PRN PRN Reason: Systolic BP > 160 Digoxin (Lanoxin) 0.125 mg PO DAILY [facility] Last Admin: 10/23/17 10:16 Dose: 0.125 mg Diltiazem HCl (Cardizem Sr) 60 mg PO BID [facility] Last Admin: 10/23/17 10:16 Dose: 60 mg Enoxaparin Sodium (Lovenox) 40 mg SC 0900 [facility] Last Admin: 10/23/17 10:03 Dose: Not Given Famotidine (Pepcid) 20 mg PO BID [facility] Last Admin: 12/02/17 10:04 Dose: Not Given Fluticasone Propionate (Flonase Nasal [place]) 0 gm NASAL DAILY [facility] Last Admin: 10/23/17 10:04 Dose: Not Given Guaifenesin (Robitussin Sf) 200 mg PO Q4H [facility] Last Admin: 10/23/17 11:47 Dose: Not Given Hydralazine HCl (Apresoline) 10 mg SLOW IVP Q4H PRN PRN Reason: Systolic BP > 170 Levofloxacin (Levaquin) 500 mg PO 0600 [facility] Last Admin: 10/23/17 05:33 Dose: 500 mg Loratadine (Claritin) 10 mg PO DAILYPRN PRN PRN Reason: Sinus Symptoms Lorazepam (Ativan) 1 mg PO Q4H PRN PRN Reason: Anxiety/Agitation Last Admin: 10/23/17 10:23 Dose: 1 mg Mometasone Furoate/Formoterol Fumar (Dulera 200 Mcg/5 Mcg Inhaler) 2 puff INH BID-RT [facility] Last Admin: 10/23/17 06:52 Dose: 2 puff Morphine Sulfate (Morphine) 4 mg SLOW IVP Q4H PRN PRN Reason: PAIN-SEVERE Last Admin: 10/19/17 04:40 Dose: 4 mg Nitroglycerin (Nitrostat) 0.4 mg SL Q5MIN PRN PRN Reason: Chest Pain Nystatin (Mycostatin) 500,000 units SSW QID [facility] Last Admin: 10/23/17 10:17 Dose: 500,000 units Ondansetron HCl (Zofran) 4 mg IVP Q6H PRN PRN Reason: Nausea/Vomiting Amlodipine/Valsartan (Exforge) 10/160 Mg Tablet 0 each PO DAILY [facility] Last Admin: 10/23/17 10:16 Dose: 1 each Prednisone (Prednisone) 40 mg PO QAM-WM [facility] Senna (Senokot) 2 tab PO HSPRN PRN PRN Reason: Constipation Sodium Chloride (Flush - Normal Saline) 10 ml IVF Q12HR [facility] Last Admin: 10/23/17 10:17 Dose: 10 ml Sodium Chloride (Flush - Normal Saline) 10 ml IVF PRN PRN PRN Reason: Saline Flush Last Admin: 10/22/17 15:09 Dose: 10 ml Vitamin E (Vitamin E) 400 units PO DAILY [facility] Last Admin: 10/23/17 10:04 Dose: Not Given
[2017-10-24] MEDS: Diabetic Tussin 200 MG/10 ML UDCUP PO SCH ×6 (04:07→23:48)
[2017-10-24] MEDS: Mometasone/Formoterol 120 PUFF INHALER INH SCH ×2 (06:54→19:11)
[2017-10-24] MEDS: Enoxaparin Sodium 40 MG/0.4 ML SYRINGE SC SCH (07:24)
[2017-10-24] MEDS: Vitami E (Dl,Tocopheryl Acet) 400 UNITS CAP PO SCH (07:24)
[2017-10-24] MEDS: Famotidine 20 MG TAB PO SCH ×2 (07:24→19:30)
[2017-10-24] MEDS: Fluticasone Propionate Nasal Spray 16 gm Bottle NASAL SCH (07:24)
[2017-10-24] MEDS: Digoxin 0.125 MG TAB PO SCH (07:53)
[2017-10-24] MEDS: VALSARTAN PO SCH (07:54)
[2017-10-24] MEDS: predniSONE 20 MG TAB PO SCH (07:54)
[2017-10-24] MEDS: Diltiazem HCl SR 60 mg Capsule PO SCH ×2 (07:54→20:04)
[2017-10-24] MEDS: Nystatin 500,000 UNITS/5 ML UDCUP SSW SCH ×4 (07:54→20:04)
[2017-10-24] MEDS: AMLODIPINE PO SCH (07:54)
[2017-10-24] MEDS: Lorazepam 1 MG TAB PO PRN ×2 (08:03→21:45)
--- NOTE | 2017-10-24 12:45 | PDOC.PN ---
- Subjective Encounter Start Date: 10/24/17 Encounter Start Time: 09:15 Subjective: awake, feels better, oriented well -: was on bipap last night - Objective Resuscitation Status: Resuscitation Status FULL:Full Resuscitation MAR Reviewed: Yes Vital Signs & Weight: Vital Signs (12 hours) Temp Pulse Resp BP Pulse Ox 10/24/17 10:40 100 18 10/24/17 08:30 97.7 F 104 H 24 H 122/68 94 L 10/24/17 08:00 97.8 F 104 H 20 10/24/17 07:53 104 H 10/24/17 06:55 96 16 10/24/17 04:00 97.8 F 96 18 126/76 95 10/24/17 02:26 103 H 16 10/24/17 01:09 96 Weight Admit Weight 99 lb Weight 109 lb 3.2 oz I&O: 10/23/17 10/24/17 10/25/17 06:59 06:59 06:59 Intake Total 1692 1810 Output Total 1100 300 Balance 592 1510 Result Diagrams: 10/17/17 08:00 10/17/17 08:00 Phys Exam - Physical Examination HEENT: PERRLA, moist MMs Neck: no JVD, supple Respiratory: no wheezing, no rales rhonchi+ Cardiovascular: RRR, no significant murmur Gastrointestinal: soft, non-tender, positive bowel sounds Musculoskeletal: no edema, pulses present Neurological: non-focal, moves all 4 limbs Psychiatric: A&O x 3 Dx/Plan (1) Physical deconditioning Code(s): R53.81 - OTHER MALAISE Status: Acute (2) Acute and chronic respiratory failure with hypoxia Code(s): J96.21 - ACUTE AND CHRONIC RESPIRATORY FAILURE WITH HYPOXIA Status: Acute (3) COPD with exacerbation Code(s): J44.1 - CHRONIC OBSTRUCTIVE PULMONARY DISEASE W (ACUTE) EXACERBATION Status: Acute - Plan is on duonebs, prednisone, slowly improving -: dig and cardizem for ?sinus tach -: encourage po intake -: PT to mobilize as tolerated, rehab eval -: is on bipap at night * . Review of Systems - Medications/Allergies Allergies/Adverse Reactions: Allergies Allergy/AdvReac Type Severity Reaction Status Date / Time Penicillins Allergy Severe swelling, Verified 10/12/17 21:37 rash Sulfa (Sulfonamide Allergy Severe swelling, Verified 10/12/17 21:37 Antibiotics) rash cephalexin monohydrate Allergy Intermediate itching, Verified 10/12/17 21:37 [From Keflex] rash Medications: Current Medications Acetaminophen (Tylenol) 650 mg PO Q4H PRN PRN Reason: Headache/Fever or Pain Al Hydroxide/Mg Hydroxide (Maalox) 30 ml PO Q6H PRN PRN Reason: Heartburn or Indigestion Albuterol/Ipratropium (Duoneb) 3 ml NEB [id number] PRN PRN Reason: SOB &/or Wheezing Albuterol/Ipratropium (Duoneb) 3 ml NEB [id number] [facility] Last Admin: 10/24/17 10:40 Dose: 3 ml Benzonatate (Tessalon) 100 mg PO Q4H PRN PRN Reason: Cough Bisacodyl (Dulcolax) 10 mg PO DAILYPRN PRN PRN Reason: Constipation Calcium Carbonate (Tums) 1,000 mg PO Q4H PRN PRN Reason: Heartburn or Indigestion Cholecalciferol (Vitamin D3) 2,000 units PO DAILY [facility] Last Admin: 10/24/17 07:23 Dose: Not Given Clonidine (Catapres) 0.1 mg PO Q4H PRN PRN Reason: Systolic BP > 160 Digoxin (Lanoxin) 0.125 mg PO DAILY [facility] Last Admin: 10/24/17 07:53 Dose: 0.125 mg Diltiazem HCl (Cardizem Sr) 60 mg PO BID [facility] Last Admin: 10/24/17 07:54 Dose: 60 mg Enoxaparin Sodium (Lovenox) 40 mg SC 0900 [facility] Last Admin: 10/24/17 07:24 Dose: Not Given Famotidine (Pepcid) 20 mg PO BID [facility] Last Admin: 10/24/17 07:24 Dose: Not Given Fluticasone Propionate (Flonase Nasal [place]) 0 gm NASAL DAILY [facility] Last Admin: 10/24/17 07:24 Dose: Not Given Guaifenesin (Robitussin Sf) 200 mg PO Q4H [facility] Last Admin: 10/24/17 11:19 Dose: Not Given Hydralazine HCl (Apresoline) 10 mg SLOW IVP Q4H PRN PRN Reason: Systolic BP > 170 Levofloxacin (Levaquin) 500 mg PO 0600 [facility] Last Admin: 10/24/17 06:09 Dose: 500 mg Loratadine (Claritin) 10 mg PO DAILYPRN PRN PRN Reason: Sinus Symptoms Lorazepam (Ativan) 1 mg PO Q4H PRN PRN Reason: Anxiety/Agitation Last Admin: 10/24/17 08:03 Dose: 1 mg Mometasone Furoate/Formoterol Fumar (Dulera 200 Mcg/5 Mcg Inhaler) 2 puff INH BID-RT [facility] Last Admin: 10/24/17 06:54 Dose: 2 puff Morphine Sulfate (Morphine) 4 mg SLOW IVP Q4H PRN PRN Reason: PAIN-SEVERE Last Admin: 10/19/17 04:40 Dose: 4 mg Nitroglycerin (Nitrostat) 0.4 mg SL Q5MIN PRN PRN Reason: Chest Pain Nystatin (Mycostatin) 500,000 units SSW QID [facility] Last Admin: 10/24/17 07:54 Dose: 500,000 units Ondansetron HCl (Zofran) 4 mg IVP Q6H PRN PRN Reason: Nausea/Vomiting Amlodipine/Valsartan (Exforge) 10/160 Mg Tablet 0 each PO DAILY [facility] Last Admin: 10/24/17 07:54 Dose: 1 each Prednisone (Prednisone) 40 mg PO QAM-WM [facility] Last Admin: 10/24/17 07:54 Dose: 40 mg Senna (Senokot) 2 tab PO HSPRN PRN PRN Reason: Constipation Sodium Chloride (Flush - Normal Saline) 10 ml IVF Q12HR [facility] Last Admin: 10/24/17 08:05 Dose: 10 ml Sodium Chloride (Flush - Normal Saline) 10 ml IVF PRN PRN PRN Reason: Saline Flush Last Admin: 10/22/17 15:09 Dose: 10 ml Vitamin E (Vitamin E) 400 units PO DAILY [facility] Last Admin: 10/24/17 07:24 Dose: Not Given
--- NOTE | 2017-10-24 17:23 | PRG ---
DATE OF SERVICE: 10/24/2017 SUBJECTIVE: Aissatou Hugo has no new complaints. She is becoming a little more active on a daily basi s, starting to look more like her own self. OBJECTIVE: VITAL SIGNS: She is afebrile, heart rate 100, respiratory rate 16, oximetry is 94 on 3 liters, blood pressure 122/68. LUNGS: Clear. 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 PLAN: Physical therapy. Probably need to work on getting her a noninvasive ventilatory support mach deon for her at home. We will place the consult for the evaluation in the morning.
[2017-10-25] MEDS: Diabetic Tussin 200 MG/10 ML UDCUP PO SCH ×6 (04:22→23:35)
[2017-10-25 04:45] LABS: BUN (Urea Nitrogen) 13 mg/dL (9.8-20.1); Calc. Creatinine Clearance 79 mL/min (70-130); Calcium 8.5 mg/dL (7.8-10.44); Estimated GFR-MDRD Greater than 90
[2017-10-25 04:56] LABS: Anion Gap 11 mmol/L (10-20); Chloride 82 mmol/L (98-107)
[2017-10-25 04:59] LABS: Carbon Dioxide 41 mmol/L (23-31)
[2017-10-25 05:04] LABS: Band 3 % (5-11); Hematocrit 36.7 % (36.0-47.0); Mean Platelet Volume 6.9 fL (7.4-10.4); Neutrophil 72 % (42-75); Reactive Lymphocytes 1 % (0-10); Red Blood Cell (RBC) Count 3.99 mill/uL (4.20-5.40); White Blood Cell (WBC) Count 12.5 thou/uL (4.8-10.8)
[2017-10-25] MEDS ORDERED: Potassium Chloride 20 MEQ TAB PO SCH (06:00)
[2017-10-25] MEDS: Mometasone/Formoterol 120 PUFF INHALER INH SCH ×2 (06:46→19:59)
[2017-10-25] MEDS: Enoxaparin Sodium 40 MG/0.4 ML SYRINGE SC SCH (06:51)
[2017-10-25] MEDS: Famotidine 20 MG TAB PO SCH ×2 (06:52→19:58)
[2017-10-25] MEDS: Fluticasone Propionate Nasal Spray 16 gm Bottle NASAL SCH (06:52)
[2017-10-25] MEDS: Vitami E (Dl,Tocopheryl Acet) 400 UNITS CAP PO SCH (06:52)
[2017-10-25] MEDS: Digoxin 0.125 MG TAB PO SCH (07:54)
[2017-10-25] MEDS: Nystatin 500,000 UNITS/5 ML UDCUP SSW SCH ×4 (07:54→19:58)
[2017-10-25] MEDS: Diltiazem HCl SR 60 mg Capsule PO SCH ×2 (07:54→19:57)
[2017-10-25] MEDS: predniSONE 20 MG TAB PO SCH (07:54)
[2017-10-25] MEDS: Potassium Chloride 20 MEQ TAB PO SCH ×4 (07:55→23:36)
[2017-10-25] MEDS: VALSARTAN PO SCH (07:55)
[2017-10-25] MEDS: AMLODIPINE PO SCH (07:55)
[2017-10-25] MEDS: Lorazepam 1 MG TAB PO PRN ×2 (08:00→23:36)
--- NOTE | 2017-10-25 11:34 | PDOC.PN ---
- Subjective Encounter Start Date: 10/25/17 Encounter Start Time: 10:45 Subjective: breathing better, used bipap last night -: is on nasal canula and comfortable on bed -: is amb minimally in the room on oxygen - Objective Resuscitation Status: Resuscitation Status FULL:Full Resuscitation MAR Reviewed: Yes Vital Signs & Weight: Vital Signs (12 hours) Temp Pulse Resp BP Pulse Ox 10/25/17 08:34 97.4 F L 102 H 20 101/63 95 10/25/17 08:00 97.1 F L 102 H 20 10/25/17 07:54 102 H 10/25/17 06:44 98 24 H 100 10/25/17 02:24 103 H 13 93 L Weight Admit Weight 99 lb Weight 109 lb 3.2 oz I&O: 10/24/17 10/25/17 10/26/17 06:59 06:59 06:59 Intake Total 1810 720 Output Total 300 Balance 1510 720 Result Diagrams: 10/25/17 04:08 10/25/17 04:08 Phys Exam - Physical Examination HEENT: PERRLA, sclera anicteric Neck: no JVD, supple Respiratory: no wheezing, no rales rhonchi+ Cardiovascular: RRR, no significant murmur Gastrointestinal: soft, non-tender, positive bowel sounds Musculoskeletal: no edema, pulses present Neurological: non-focal, moves all 4 limbs Psychiatric: A&O x 3 Dx/Plan (1) Physical deconditioning Code(s): R53.81 - OTHER MALAISE Status: Acute (2) Acute and chronic respiratory failure with hypoxia Code(s): J96.21 - ACUTE AND CHRONIC RESPIRATORY FAILURE WITH HYPOXIA Status: Acute (3) COPD with exacerbation Code(s): J44.1 - CHRONIC OBSTRUCTIVE PULMONARY DISEASE W (ACUTE) EXACERBATION Status: Acute (4) Hypokalemia Code(s): E87.6 - HYPOKALEMIA Status: Acute - Plan replace potassium -: weaning off bipap at night per pulm advice -: is slowly recovering -: PT to mobilize as tolerated -: will likely need home O2, rehab eval based on PT input * . on prednisone, duonebs. Will get echo, sinus tach likely due to nebs?, is on dig and cardizem Review of Systems - Medications/Allergies Allergies/Adverse Reactions: Allergies Allergy/AdvReac Type Severity Reaction Status Date / Time Penicillins Allergy Severe swelling, Verified 10/12/17 21:37 rash Sulfa (Sulfonamide Allergy Severe swelling, Verified 10/12/17 21:37 Antibiotics) rash cephalexin monohydrate Allergy Intermediate itching, Verified 10/12/17 21:37 [From Keflex] rash Medications: Current Medications Acetaminophen (Tylenol) 650 mg PO Q4H PRN PRN Reason: Headache/Fever or Pain Al Hydroxide/Mg Hydroxide (Maalox) 30 ml PO Q6H PRN PRN Reason: Heartburn or Indigestion Albuterol/Ipratropium (Duoneb) 3 ml NEB [id number] PRN PRN Reason: SOB &/or Wheezing Albuterol/Ipratropium (Duoneb) 3 ml NEB [id number] [facility] Last Admin: 10/25/17 10:30 Dose: 3 ml Benzonatate (Tessalon) 100 mg PO Q4H PRN PRN Reason: Cough Bisacodyl (Dulcolax) 10 mg PO DAILYPRN PRN PRN Reason: Constipation Calcium Carbonate (Tums) 1,000 mg PO Q4H PRN PRN Reason: Heartburn or Indigestion Cholecalciferol (Vitamin D3) 2,000 units PO DAILY [facility] Last Admin: 10/25/17 06:53 Dose: Not Given Clonidine (Catapres) 0.1 mg PO Q4H PRN PRN Reason: Systolic BP > 160 Digoxin (Lanoxin) 0.125 mg PO DAILY [facility] Last Admin: 10/25/17 07:54 Dose: 0.125 mg Diltiazem HCl (Cardizem Sr) 60 mg PO BID [facility] Last Admin: 10/25/17 07:54 Dose: 60 mg Enoxaparin Sodium (Lovenox) 40 mg SC 0900 [facility] Last Admin: 10/25/17 06:51 Dose: Not Given Famotidine (Pepcid) 20 mg PO BID [facility] Last Admin: 10/25/17 06:52 Dose: Not Given Fluticasone Propionate (Flonase Nasal [place]) 0 gm NASAL DAILY [facility] Last Admin: 10/25/17 06:52 Dose: Not Given Guaifenesin (Robitussin Sf) 200 mg PO Q4H [facility] Last Admin: 10/25/17 11:06 Dose: Not Given Hydralazine HCl (Apresoline) 10 mg SLOW IVP Q4H PRN PRN Reason: Systolic BP > 170 Levofloxacin (Levaquin) 500 mg PO 0600 [facility] Last Admin: 10/25/17 04:57 Dose: 500 mg Loratadine (Claritin) 10 mg PO DAILYPRN PRN PRN Reason: Sinus Symptoms Lorazepam (Ativan) 1 mg PO Q4H PRN PRN Reason: Anxiety/Agitation Last Admin: 10/25/17 08:00 Dose: 1 mg Mometasone Furoate/Formoterol Fumar (Dulera 200 Mcg/5 Mcg Inhaler) 2 puff INH BID-RT [facility] Last Admin: 10/25/17 06:46 Dose: 2 puff Morphine Sulfate (Morphine) 4 mg SLOW IVP Q4H PRN PRN Reason: PAIN-SEVERE Last Admin: 10/19/17 04:40 Dose: 4 mg Nitroglycerin (Nitrostat) 0.4 mg SL Q5MIN PRN PRN Reason: Chest Pain Nystatin (Mycostatin) 500,000 units SSW QID [facility] Last Admin: 10/25/17 07:54 Dose: 500,000 units Ondansetron HCl (Zofran) 4 mg IVP Q6H PRN PRN Reason: Nausea/Vomiting Amlodipine/Valsartan (Exforge) 10/160 Mg Tablet 0 each PO DAILY [facility] Last Admin: 10/25/17 07:55 Dose: 1 each Potassium Chloride (K-Dur) 40 meq PO 0100,0700,1300,1900 [facility] Stop: 10/26/17 13:01 Last Admin: 10/25/17 07:55 Dose: 40 meq Prednisone (Prednisone) 40 mg PO QAM-WM [facility] Last Admin: 10/25/17 07:54 Dose: 40 mg Senna (Senokot) 2 tab PO HSPRN PRN PRN Reason: Constipation Sodium Chloride (Flush - Normal Saline) 10 ml IVF Q12HR [facility] Last Admin: 10/25/17 08:01 Dose: 10 ml Sodium Chloride (Flush - Normal Saline) 10 ml IVF PRN PRN PRN Reason: Saline Flush Last Admin: 10/22/17 15:09 Dose: 10 ml Vitamin E (Vitamin E) 400 units PO DAILY [facility] Last Admin: 10/25/17 06:52 Dose: Not Given
--- NOTE | 2017-10-25 12:32 | PRG ---
DATE OF SERVICE: 10/25/2017 SUBJECTIVE: Aissatou Hugo did well overnight. She will go home today or tomorrow, but she thinks she will be able to do the next day. She is working towards ambulating more. She is not hypercarbic, so she will not qualify for any type of noninvasive ventilatory support. PHYSICAL EXAMINATION: VITAL SIGNS: She is afebrile, heart rate 72, respiratory rate is 20, oximetry is 95%, and blood pres sure 101/63. LUNGS: Clear. IMPRESSION: 1. Chronic obstructive pulmonary disease exacerbation, improving. 2. Deconditioning, improving. PLAN: Hopefully at home within 48 hours.
--- NOTE | 2017-10-25 18:12 | EKG ---
Test Reason : Blood Pressure : / mmHG Vent. Rate : 093 BPM Atrial Rate : 093 BPM P-R Int : 134 ms QRS Dur : 078 ms QT Int : 340 ms P-R-T Axes : 082 065 079 degrees QTc Int : 422 ms Normal sinus rhythm Can not R/O Septal infarct (cited on or before but doubtful. Abnormal ECG When compared with ECG of 18-NOV-2016 04:22, No significant change was found Confirmed by LACHELLE GARIBAY ([id number]) on 10/25/2017 6:11:50 PM Referred By: DAVID Confirmed By:LACHELLE GARIBAY
[2017-10-26] MEDS: Diabetic Tussin 200 MG/10 ML UDCUP PO SCH ×5 (03:37→20:41)
[2017-10-26] MEDS: Potassium Chloride 20 MEQ TAB PO SCH (05:07)
[2017-10-26 06:14] LABS: #Lymphocytes 1.6 thou/uL (1.20-3.40); #Monocytes 1.9 thou/uL (0.11-0.59); #Neutrophils 10.7 thou/uL (1.40-6.50); %Basophils 0.1 % (0.0-1.0); %Eosinophils 0.2 % (0.0-10.0); %Lymphocytes 11.3 % (21.0-51.0); %Monocytes 13.3 % (0.0-10.0); Hematocrit 38.4 % (36.0-47.0); Mean Platelet Volume 7.1 fL (7.4-10.4); Red Blood Cell (RBC) Count 4.14 mill/uL (4.20-5.40); White Blood Cell (WBC) Count 14.2 thou/uL (4.8-10.8)
[2017-10-26 06:30] LABS: Anion Gap 10 mmol/L (10-20); BUN (Urea Nitrogen) 18 mg/dL (9.8-20.1); Calc. Creatinine Clearance 76 mL/min (70-130); Calcium 9.5 mg/dL (7.8-10.44); Carbon Dioxide 36 mmol/L (23-31); Chloride 91 mmol/L (98-107); Estimated GFR-MDRD Greater than 90
[2017-10-26] MEDS: Mometasone/Formoterol 120 PUFF INHALER INH SCH ×2 (06:54→19:47)
[2017-10-26] MEDS: Digoxin 0.125 MG TAB PO SCH (07:50)
[2017-10-26] MEDS: predniSONE 20 MG TAB PO SCH (07:51)
[2017-10-26] MEDS: Diltiazem HCl SR 60 mg Capsule PO SCH ×2 (07:52→20:50)
[2017-10-26] MEDS: Vitami E (Dl,Tocopheryl Acet) 400 UNITS CAP PO SCH (07:59)
[2017-10-26] MEDS: Fluticasone Propionate Nasal Spray 16 gm Bottle NASAL SCH (07:59)
[2017-10-26] MEDS: Enoxaparin Sodium 40 MG/0.4 ML SYRINGE SC SCH (07:59)
[2017-10-26] MEDS: Famotidine 20 MG TAB PO SCH ×2 (07:59→20:41)
[2017-10-26] MEDS: Nystatin 500,000 UNITS/5 ML UDCUP SSW SCH ×4 (07:59→20:41)
[2017-10-26] MEDS: Lorazepam 1 MG TAB PO PRN ×2 (09:13→21:51)
[2017-10-26] MEDS: AMLODIPINE PO SCH (09:15)
[2017-10-26] MEDS: VALSARTAN PO SCH (09:15)
--- NOTE | 2017-10-26 10:46 | PDOC.PN ---
- Subjective Encounter Start Date: 10/26/17 Encounter Start Time: 07:00 Subjective: breathing better, no sob -: is on nasal canula 3 liters spo2 around 93% -: did not use bipap last night(she was fast asleep so they didnt place) - Objective Resuscitation Status: Resuscitation Status FULL:Full Resuscitation MAR Reviewed: Yes Vital Signs & Weight: Vital Signs (12 hours) Temp Pulse Resp BP Pulse Ox 10/26/17 10:15 89 20 93 L 10/26/17 08:00 97.8 F 89 18 107/67 93 L 10/26/17 07:50 93 10/26/17 06:53 85 18 98 10/26/17 03:11 98 Weight Admit Weight 99 lb Weight 109 lb 3.2 oz I&O: 10/25/17 10/26/17 10/27/17 06:59 06:59 06:59 Intake Total 720 960 Balance 720 960 Result Diagrams: 10/26/17 05:24 10/26/17 05:24 Phys Exam - Physical Examination HEENT: PERRLA, moist MMs Neck: no JVD, supple Respiratory: no wheezing, no rales rhonchi+ Cardiovascular: RRR, no significant murmur Gastrointestinal: soft, no distention, positive bowel sounds Musculoskeletal: no edema, pulses present Neurological: non-focal, moves all 4 limbs Psychiatric: A&O x 3 Dx/Plan (1) Physical deconditioning Code(s): R53.81 - OTHER MALAISE Status: Acute (2) Acute and chronic respiratory failure with hypoxia Code(s): J96.21 - ACUTE AND CHRONIC RESPIRATORY FAILURE WITH HYPOXIA Status: Acute (3) COPD with exacerbation Code(s): J44.1 - CHRONIC OBSTRUCTIVE PULMONARY DISEASE W (ACUTE) EXACERBATION Status: Acute (4) Hypokalemia Code(s): E87.6 - HYPOKALEMIA Status: Resolved (5) Sinus tachycardia Code(s): R00.0 - TACHYCARDIA, UNSPECIFIED Status: Acute Comment: on dig and cardizem, still has loop recorder on her - Plan EP eval for sinus tach on dig and cardizem, still has her loop recorder -: nightly bipap, weaning per pulm advice -: will likely need home oxygen -: has amb around 30ft, is slowly improving -: on prednisone, nebs and levaquin * . Review of Systems - Medications/Allergies Allergies/Adverse Reactions: Allergies Allergy/AdvReac Type Severity Reaction Status Date / Time Penicillins Allergy Severe swelling, Verified 10/12/17 21:37 rash Sulfa (Sulfonamide Allergy Severe swelling, Verified 10/12/17 21:37 Antibiotics) rash cephalexin monohydrate Allergy Intermediate itching, Verified 10/12/17 21:37 [From Keflex] rash Medications: Current Medications Acetaminophen (Tylenol) 650 mg PO Q4H PRN PRN Reason: Headache/Fever or Pain Al Hydroxide/Mg Hydroxide (Maalox) 30 ml PO Q6H PRN PRN Reason: Heartburn or Indigestion Albuterol/Ipratropium (Duoneb) 3 ml NEB [id number] PRN PRN Reason: SOB &/or Wheezing Albuterol/Ipratropium (Duoneb) 3 ml NEB [id number] [facility] Last Admin: 10/26/17 10:15 Dose: 3 ml Benzonatate (Tessalon) 100 mg PO Q4H PRN PRN Reason: Cough Bisacodyl (Dulcolax) 10 mg PO DAILYPRN PRN PRN Reason: Constipation Calcium Carbonate (Tums) 1,000 mg PO Q4H PRN PRN Reason: Heartburn or Indigestion Cholecalciferol (Vitamin D3) 2,000 units PO DAILY [facility] Last Admin: 10/26/17 07:59 Dose: Not Given Clonidine (Catapres) 0.1 mg PO Q4H PRN PRN Reason: Systolic BP > 160 Digoxin (Lanoxin) 0.125 mg PO DAILY [facility] Last Admin: 10/26/17 07:50 Dose: 0.125 mg Diltiazem HCl (Cardizem Sr) 60 mg PO BID [facility] Last Admin: 10/26/17 07:52 Dose: 60 mg Enoxaparin Sodium (Lovenox) 40 mg SC 0900 [facility] Last Admin: 10/26/17 07:59 Dose: Not Given Famotidine (Pepcid) 20 mg PO BID [facility] Last Admin: 10/26/17 07:59 Dose: Not Given Fluticasone Propionate (Flonase Nasal [place]) 0 gm NASAL DAILY [facility] Last Admin: 10/26/17 07:59 Dose: Not Given Guaifenesin (Robitussin Sf) 200 mg PO Q4H [facility] Last Admin: 10/26/17 07:58 Dose: Not Given Hydralazine HCl (Apresoline) 10 mg SLOW IVP Q4H PRN PRN Reason: Systolic BP > 170 Levofloxacin (Levaquin) 500 mg PO 0600 [facility] Last Admin: 10/26/17 05:07 Dose: 500 mg Loratadine (Claritin) 10 mg PO DAILYPRN PRN PRN Reason: Sinus Symptoms Lorazepam (Ativan) 1 mg PO Q4H PRN PRN Reason: Anxiety/Agitation Last Admin: 10/26/17 09:13 Dose: 1 mg Mometasone Furoate/Formoterol Fumar (Dulera 200 Mcg/5 Mcg Inhaler) 2 puff INH BID-RT [facility] Last Admin: 10/26/17 06:54 Dose: 2 puff Morphine Sulfate (Morphine) 4 mg SLOW IVP Q4H PRN PRN Reason: PAIN-SEVERE Last Admin: 10/19/17 04:40 Dose: 4 mg Nitroglycerin (Nitrostat) 0.4 mg SL Q5MIN PRN PRN Reason: Chest Pain Nystatin (Mycostatin) 500,000 units SSW QID [facility] Last Admin: 10/26/17 07:59 Dose: 500,000 units Ondansetron HCl (Zofran) 4 mg IVP Q6H PRN PRN Reason: Nausea/Vomiting Amlodipine/Valsartan (Exforge) 10/160 Mg Tablet 0 each PO DAILY [facility] Last Admin: 10/26/17 09:15 Dose: 1 each Potassium Chloride (K-Dur) 40 meq PO 0100,0700,1300,1900 [facility] Stop: 10/26/17 13:01 Last Admin: 10/26/17 05:07 Dose: 40 meq Prednisone (Prednisone) 40 mg PO QAM-WM [facility] Last Admin: 10/26/17 07:51 Dose: 40 mg Senna (Senokot) 2 tab PO HSPRN PRN PRN Reason: Constipation Sodium Chloride (Flush - Normal Saline) 10 ml IVF Q12HR [facility] Last Admin: 10/26/17 09:14 Dose: 10 ml Sodium Chloride (Flush - Normal Saline) 10 ml IVF PRN PRN PRN Reason: Saline Flush Last Admin: 10/22/17 15:09 Dose: 10 ml Vitamin E (Vitamin E) 400 units PO DAILY [facility] Last Admin: 10/26/17 07:59 Dose: Not Given
--- NOTE | 2017-10-26 14:43 | CON ---
ELECTROPHYSIOLOGY CONSULTATION REPORT DATE OF CONSULTATION: 10/25/2017 REFERRING PHYSICIANS: Dr. Vazquez and Dr. Zhang. I am seeing Ms. Hugo at our [facility] Pulmonary Floor as an electrophysiology tanning consultant. Her problems are: 1. Atrial tachyarrhythmias. A. EKG during her acute chronic obstructive pulmonary disease exacerbation episode consistent with s inus tachycardia alternating with multifocal atrial tachycardia. 2. Remote history of syncope, loop recorder in place. No recurrence for last 2 years. 3. Advanced chronic obstructive pulmonary disease with acute exacerbation. 4. No history of significant heart disease followed by Dr. Michelle as an outpatient. ALLERGIES: PENICILLIN, SULFA and CEPHALEXIN. MEDICATIONS AT HOME: Included vitamin D, budesonide, vitamin E, fluticasone, ipratropium with albute rol, DuoNeb, clonidine, digoxin 125 mcg daily, amlodipine, prednisone, hydroxyzine, Atarax, diltiazem 60 mg p.o. daily, Ventolin inhaler and potassium gluconate. SUBJECTIVE: Ms. Hugo is here due to respiratory failure related to a COPD exacerbation, admitted on the . She was treated with aggressive nebulizer regimen and steroids and she had some electroly te abnormalities. She has been improving ever since on telemetry, frequent occurrences of tachyarrhy thmias were seen, especially in her acute phase. Multifocal atrial tachyarrhythmias also documented. I was consulted regarding these arrhythmias. Currently, the patient denies chest pains. No fever, chills or cough. No PND, orthopnea or lower ex tremity edema. No stroke-like symptoms. No neurological deficits. The rest of the 12-point review of systems is unremarkable. PAST MEDICAL HISTORY: As above. PAST SURGICAL HISTORY: Significant for history of hernia repair, polyp removal in past, history of E GD showing chronic gastritis, appendectomy, hysterectomy and carpal tunnel surgery. SOCIAL HISTORY: The patient denies smoking, but had smoked in the past for many years and stopped, q uit smoking in 10/2016. Does drink about 3 beers a day. Denies drug use. FAMILY HISTORY: Noncontributory. OBJECTIVE DATA: VITAL SIGNS: Blood pressure is 134/70, heart rate 93, respirations 18 and temperature 98.2 degrees F ahrenheit. GENERAL: This is an alert and oriented woman in no apparent distress. NECK: Supple. Jugular veins not distended. CHEST: Coarse without crackles. CARDIOVASCULAR: Heart sounds are regular to rate and rhythm. No murmur or gallop. ABDOMEN: Benign. Bowel sounds positive. EXTREMITIES: Lower extremities without edema, clubbing or cyanosis. Pulses are adequate. NEUROLOGIC: The patient is nonfocal. MUSCULOSKELETAL: No joint swelling or deformities. SKIN: Without rash, precordial site is healed. DATABASE: The EKG reveals sinus rhythm and sinus tachycardia, reveal occasional multifocal at rial tachyarrhythmias. Most recent EKG from 10/25/2017 reveals just sinus rhythm in the 80s. ASSESSMENT AND PLAN: 1. Ms. Hugo is a pleasant 72-year-old woman with prior history of syncopal spells for which she car zakia a loop recorder implanted. her syncopal spells seems to have resolved. She does have his tory of advanced lung disease. No significant heart disease otherwise. She is admitted with other e pisode of chronic obstructive pulmonary disease exacerbation, but seems to be doing better. Her bron chitis has improved and her respiratory status is also improving. Concern was her tachyarrhythmias w ith some irregularity. At this point, I do not observe an atrial fibrillation, but more multifocal a trial tachycardias are seen, which is very common in her presenting condition of the advanced chronic obstructive pulmonary disease. For now, I agree with plan of diltiazem and digoxin administration. It could be a consideration to increased diltiazem if necessary, but at this point, her heart rate s eems to also stabilizing. 2. History of syncope with implanted loop recorder device, but at this point, no symptomatic episode s of syncope documented. 3. Chronic obstructive pulmonary disease exacerbation, now improving. Continue as per primary care, hospitalist and Pulmonary service. 4. Routine followup recommended Dr. Michelle as before.
[2017-10-26 14:49] VITALS: BMI 19.3
--- NOTE | 2017-10-26 17:35 | PRG ---
DATE OF SERVICE: 10/26/2017 SUBJECTIVE: Ms. Hugo continues to progress. She has no wheezes. She is afebrile, heart rate in th e 80s, respiratory rate is in the teens. We tried to do PFTs on her, but the bedside spirometer could not activate with her inspiratory maneuv ers, so we will take her to the full pulmonary function lab tomorrow and hopefully we can get PFTs. It will allow us to document the need for noninvasive nocturnal ventilation. IMPRESSION AND PLAN: End-stage chronic obstructive pulmonary disease with chronic respiratory failur e, chronic hypoxemia on home oxygen. I assessed the patient and recommend that we will order volume ventilation for nocturnal and daytime p.r.n. use. This will help control symptoms of chronic respira tory failure and hopefully provide for muscle rest. Additional BiPAPs inadequate given the severity of her obstructive lung disease. Her primary problem is chronic obstructive pulmonary disease and is because of her chronic respiratory failure.
[2017-10-27] MEDS: Diabetic Tussin 200 MG/10 ML UDCUP PO SCH ×6 (00:05→19:08)
[2017-10-27 06:15] LABS: ALT (SGPT) 37 U/L (8-55); AST (SGOT) 19 U/L (5-34); Alkaline Phosphatase 58 U/L (40-150); Anion Gap 9 mmol/L (10-20); BUN (Urea Nitrogen) 13 mg/dL (9.8-20.1); Bilirubin, Total 0.5 mg/dL (0.2-1.2); Calc. Creatinine Clearance 71 mL/min (70-130); Calcium 9.3 mg/dL (7.8-10.44); Carbon Dioxide 35 mmol/L (23-31); Chloride 91 mmol/L (98-107); Estimated GFR-MDRD Greater than 90; Globulin 2.3 g/dL (2.4-3.5); Protein, Total 5.8 g/dL (6.0-8.3)
[2017-10-27] MEDS: Nystatin 500,000 UNITS/5 ML UDCUP SSW SCH ×4 (07:45→19:09)
[2017-10-27] MEDS: Digoxin 0.125 MG TAB PO SCH (07:46)
[2017-10-27] MEDS: predniSONE 20 MG TAB PO SCH (07:47)
[2017-10-27] MEDS: Diltiazem HCl SR 60 mg Capsule PO SCH ×2 (07:48→19:47)
[2017-10-27] MEDS: Enoxaparin Sodium 40 MG/0.4 ML SYRINGE SC SCH (07:49)
[2017-10-27] MEDS: Fluticasone Propionate Nasal Spray 16 gm Bottle NASAL SCH (07:50)
[2017-10-27] MEDS: Famotidine 20 MG TAB PO SCH ×2 (07:50→19:08)
[2017-10-27] MEDS: AMLODIPINE PO SCH (07:51)
[2017-10-27] MEDS: VALSARTAN PO SCH (07:51)
[2017-10-27] MEDS: Vitami E (Dl,Tocopheryl Acet) 400 UNITS CAP PO SCH (07:52)
[2017-10-27] MEDS: Lorazepam 1 MG TAB PO PRN ×3 (07:56→21:51)
[2017-10-27] MEDS: Mometasone/Formoterol 120 PUFF INHALER INH SCH ×2 (08:25→19:37)
--- NOTE | 2017-10-27 11:37 | PDOC.PN ---
- Subjective Encounter Start Date: 10/27/17 Encounter Start Time: 09:00 Subjective: no sob, is amb in room - Objective Resuscitation Status: Resuscitation Status FULL:Full Resuscitation MAR Reviewed: Yes Vital Signs & Weight: Vital Signs (12 hours) Temp Pulse Resp BP Pulse Ox 10/27/17 08:00 97.5 F L 88 16 126/78 97 10/27/17 07:46 88 10/27/17 03:32 91 20 95 Weight Admit Weight 99 lb Weight 109 lb 3.2 oz I&O: 10/26/17 10/27/17 10/28/17 06:59 06:59 06:59 Intake Total 960 1447 Balance 960 1447 Result Diagrams: 10/26/17 05:24 10/27/17 04:05 Phys Exam - Physical Examination HEENT: PERRLA, moist MMs Neck: no JVD, supple Respiratory: no wheezing, no rales rhonchi+ Cardiovascular: RRR, no significant murmur Gastrointestinal: soft, non-tender, positive bowel sounds Musculoskeletal: no edema, pulses present Neurological: non-focal, moves all 4 limbs Psychiatric: A&O x 3 Dx/Plan (1) Physical deconditioning Code(s): R53.81 - OTHER MALAISE Status: Acute (2) Acute and chronic respiratory failure with hypoxia Code(s): J96.21 - ACUTE AND CHRONIC RESPIRATORY FAILURE WITH HYPOXIA Status: Acute (3) COPD with exacerbation Code(s): J44.1 - CHRONIC OBSTRUCTIVE PULMONARY DISEASE W (ACUTE) EXACERBATION Status: Acute (4) Hypokalemia Code(s): E87.6 - HYPOKALEMIA Status: Resolved (5) Sinus tachycardia Code(s): R00.0 - TACHYCARDIA, UNSPECIFIED Status: Chronic Comment: on dig and cardizem, still has loop recorder on her - Plan is getting full PFT's today -: is on prednisone 40mg daily, nebs -: on dig and cardizem, she needs to f/u with to see if her loop recor -: -allen showed any abnormalities, not sure if its still functioning/?removal -: echo results from 10/25 is pending, might require vol ventilation at bedtime * . Review of Systems - Medications/Allergies Allergies/Adverse Reactions: Allergies Allergy/AdvReac Type Severity Reaction Status Date / Time Penicillins Allergy Severe swelling, Verified 10/12/17 21:37 rash Sulfa (Sulfonamide Allergy Severe swelling, Verified 10/12/17 21:37 Antibiotics) rash cephalexin monohydrate Allergy Intermediate itching, Verified 10/12/17 21:37 [From Keflex] rash Medications: Current Medications Acetaminophen (Tylenol) 650 mg PO Q4H PRN PRN Reason: Headache/Fever or Pain Al Hydroxide/Mg Hydroxide (Maalox) 30 ml PO Q6H PRN PRN Reason: Heartburn or Indigestion Albuterol/Ipratropium (Duoneb) 3 ml NEB [id number] PRN PRN Reason: SOB &/or Wheezing Albuterol/Ipratropium (Duoneb) 3 ml NEB [id number] Last Admin: 10/27/17 10:34 Dose: Not Given Benzonatate (Tessalon) 100 mg PO Q4H PRN PRN Reason: Cough Bisacodyl (Dulcolax) 10 mg PO DAILYPRN PRN PRN Reason: Constipation Calcium Carbonate (Tums) 1,000 mg PO Q4H PRN PRN Reason: Heartburn or Indigestion Cholecalciferol (Vitamin D3) 2,000 units PO DAILY [facility] Last Admin: 10/27/17 07:48 Dose: Not Given Clonidine (Catapres) 0.1 mg PO Q4H PRN PRN Reason: Systolic BP > 160 Digoxin (Lanoxin) 0.125 mg PO DAILY [facility] Last Admin: 10/27/17 07:46 Dose: 0.125 mg Diltiazem HCl (Cardizem Sr) 60 mg PO BID [facility] Last Admin: 10/27/17 07:48 Dose: 60 mg Enoxaparin Sodium (Lovenox) 40 mg SC 0900 [facility] Last Admin: 10/27/17 07:49 Dose: Not Given Famotidine (Pepcid) 20 mg PO BID [facility] Last Admin: 10/27/17 07:50 Dose: Not Given Fluticasone Propionate (Flonase Nasal [place]) 0 gm NASAL DAILY [facility] Last Admin: 10/27/17 07:50 Dose: Not Given Guaifenesin (Robitussin Sf) 200 mg PO Q4H [facility] Last Admin: 10/27/17 07:47 Dose: Not Given Hydralazine HCl (Apresoline) 10 mg SLOW IVP Q4H PRN PRN Reason: Systolic BP > 170 Levofloxacin (Levaquin) 500 mg PO 0600 [facility] Last Admin: 10/27/17 05:08 Dose: 500 mg Loratadine (Claritin) 10 mg PO DAILYPRN PRN PRN Reason: Sinus Symptoms Lorazepam (Ativan) 1 mg PO Q4H PRN PRN Reason: Anxiety/Agitation Last Admin: 10/27/17 07:56 Dose: 1 mg Mometasone Furoate/Formoterol Fumar (Dulera 200 Mcg/5 Mcg Inhaler) 2 puff INH BID-[facility] Last Admin: 10/27/17 08:25 Dose: Not Given Morphine Sulfate (Morphine) 4 mg SLOW IVP Q4H PRN PRN Reason: PAIN-SEVERE Last Admin: 10/19/17 04:40 Dose: 4 mg Nitroglycerin (Nitrostat) 0.4 mg SL Q5MIN PRN PRN Reason: Chest Pain Nystatin (Mycostatin) 500,000 units SSW QID [facility] Last Admin: 10/27/17 07:45 Dose: 500,000 units Ondansetron HCl (Zofran) 4 mg IVP Q6H PRN PRN Reason: Nausea/Vomiting Amlodipine/Valsartan (Exforge) 10/160 Mg Tablet 0 each PO DAILY [facility] Last Admin: 10/27/17 07:51 Dose: 1 each Prednisone (Prednisone) 40 mg PO QAM-[facility] Last Admin: 10/27/17 07:47 Dose: 40 mg Senna (Senokot) 2 tab PO HSPRN PRN PRN Reason: Constipation Sodium Chloride (Flush - Normal Saline) 10 ml IVF Q12HR [facility] Last Admin: 10/27/17 07:47 Dose: 10 ml Sodium Chloride (Flush - Normal Saline) 10 ml IVF PRN PRN PRN Reason: Saline Flush Last Admin: 10/22/17 15:09 Dose: 10 ml Vitamin E (Vitamin E) 400 units PO DAILY [facility] Last Admin: 10/27/17 07:52 Dose: Not Given
--- NOTE | 2017-10-27 16:40 | PRG ---
DATE OF SERVICE: 10/27/2017 Ms. Hugo's PFTs show very severe obstructive defect. She could not perform the lung volume maneuver , but her FEV1 is less than 40% of predicted. Her lungs are clear. Her electrolytes are essentially unchanged. IMPRESSION: End-stage obstructive lung disease. She would benefit from Trilogy nocturnal volume willie tilation. The consult will be placed.
[2017-10-28] MEDS: Diabetic Tussin 200 MG/10 ML UDCUP PO SCH ×5 (00:06→16:57)
[2017-10-28 05:41] LABS: ALT (SGPT) 35 U/L (8-55); AST (SGOT) 19 U/L (5-34); Alkaline Phosphatase 58 U/L (40-150); Anion Gap 9 mmol/L (10-20); BUN (Urea Nitrogen) 12 mg/dL (9.8-20.1); Bilirubin, Total 0.4 mg/dL (0.2-1.2); Calc. Creatinine Clearance 76 mL/min (70-130); Calcium 8.8 mg/dL (7.8-10.44); Carbon Dioxide 29 mmol/L (23-31); Chloride 93 mmol/L (98-107); Estimated GFR-MDRD Greater than 90; Globulin 2.1 g/dL (2.4-3.5); Protein, Total 5.3 g/dL (6.0-8.3)
[2017-10-28] MEDS: Mometasone/Formoterol 120 PUFF INHALER INH SCH (06:33)
[2017-10-28] MEDS: Diltiazem HCl SR 60 mg Capsule PO SCH (07:43)
[2017-10-28] MEDS: predniSONE 20 MG TAB PO SCH (07:43)
[2017-10-28] MEDS: Enoxaparin Sodium 40 MG/0.4 ML SYRINGE SC SCH (07:43)
[2017-10-28] MEDS: Nystatin 500,000 UNITS/5 ML UDCUP SSW SCH ×2 (07:43→16:57)
[2017-10-28] MEDS: Famotidine 20 MG TAB PO SCH (07:44)
[2017-10-28] MEDS: Vitami E (Dl,Tocopheryl Acet) 400 UNITS CAP PO SCH (07:45)
[2017-10-28] MEDS: Fluticasone Propionate Nasal Spray 16 gm Bottle NASAL SCH (07:45)
[2017-10-28] MEDS: VALSARTAN PO SCH (07:45)
[2017-10-28] MEDS: AMLODIPINE PO SCH (07:45)
[2017-10-28] MEDS: Digoxin 0.125 MG TAB PO SCH (07:46)
[2017-10-28 07:47] VITALS: BP 119/72; TEMP 97.4
[2017-10-28] MEDS: Lorazepam 1 MG TAB PO PRN (07:55)
--- NOTE | 2017-10-28 12:37 | PDOC.PN ---
- Subjective Encounter Start Date: 10/28/17 Encounter Start Time: 09:00 Subjective: breathing better, no wheezing now - Objective Resuscitation Status: Resuscitation Status FULL:Full Resuscitation MAR Reviewed: Yes Vital Signs & Weight: Vital Signs (12 hours) Temp Pulse Resp BP Pulse Ox 10/28/17 10:35 91 16 10/28/17 08:00 97.4 F L 91 16 98 10/28/17 07:46 97.4 F L 91 16 119/72 98 10/28/17 06:36 87 16 10/28/17 03:17 80 16 100 Weight Admit Weight 99 lb Weight 109 lb 3.2 oz I&O: 10/27/17 10/28/17 10/29/17 06:59 06:59 06:59 Intake Total 1447 1850 Balance 1447 1850 Result Diagrams: 10/26/17 05:24 10/28/17 04:01 Phys Exam - Physical Examination HEENT: PERRLA, moist MMs Neck: no JVD, supple Respiratory: no wheezing, no rales Cardiovascular: RRR, no significant murmur Gastrointestinal: soft, non-tender, positive bowel sounds Musculoskeletal: no edema, pulses present Neurological: non-focal, moves all 4 limbs Psychiatric: A&O x 3 Dx/Plan (1) Physical deconditioning Code(s): R53.81 - OTHER MALAISE Status: Acute (2) Acute and chronic respiratory failure with hypoxia Code(s): J96.21 - ACUTE AND CHRONIC RESPIRATORY FAILURE WITH HYPOXIA Status: Acute (3) COPD with exacerbation Code(s): J44.1 - CHRONIC OBSTRUCTIVE PULMONARY DISEASE W (ACUTE) EXACERBATION Status: Acute (4) Hypokalemia Code(s): E87.6 - HYPOKALEMIA Status: Resolved (5) Sinus tachycardia Code(s): R00.0 - TACHYCARDIA, UNSPECIFIED Status: Chronic Comment: on dig and cardizem, still has loop recorder on her - Plan is on nebs, dulera and prednisone -: cardizem and dig, check resting and amb spo2 for home oxygen -: will require nocturnal vol ventilator, consult has been placed by -: PT/walking program to mobilize with oxygen -: wean nasal canula down to 2 liters, currently 3lts with 98% spo2 * . Review of Systems - Medications/Allergies Allergies/Adverse Reactions: Allergies Allergy/AdvReac Type Severity Reaction Status Date / Time Penicillins Allergy Severe swelling, Verified 10/12/17 21:37 rash Sulfa (Sulfonamide Allergy Severe swelling, Verified 10/12/17 21:37 Antibiotics) rash cephalexin monohydrate Allergy Intermediate itching, Verified 10/12/17 21:37 [From Keflex] rash Medications: Current Medications Acetaminophen (Tylenol) 650 mg PO Q4H PRN PRN Reason: Headache/Fever or Pain Al Hydroxide/Mg Hydroxide (Maalox) 30 ml PO Q6H PRN PRN Reason: Heartburn or Indigestion Albuterol/Ipratropium (Duoneb) 3 ml NEB [id number] PRN PRN Reason: SOB &/or Wheezing Albuterol/Ipratropium (Duoneb) 3 ml NEB [id number] [facility] Last Admin: 10/28/17 10:35 Dose: 3 ml Benzonatate (Tessalon) 100 mg PO Q4H PRN PRN Reason: Cough Bisacodyl (Dulcolax) 10 mg PO DAILYPRN PRN PRN Reason: Constipation Calcium Carbonate (Tums) 1,000 mg PO Q4H PRN PRN Reason: Heartburn or Indigestion Cholecalciferol (Vitamin D3) 2,000 units PO DAILY [facility] Last Admin: 10/28/17 07:44 Dose: Not Given Clonidine (Catapres) 0.1 mg PO Q4H PRN PRN Reason: Systolic BP > 160 Digoxin (Lanoxin) 0.125 mg PO DAILY [facility] Last Admin: 10/28/17 07:46 Dose: 0.125 mg Diltiazem HCl (Cardizem Sr) 60 mg PO BID [facility] Last Admin: 10/28/17 07:43 Dose: 60 mg Enoxaparin Sodium (Lovenox) 40 mg SC 0900 [facility] Last Admin: 10/28/17 07:43 Dose: Not Given Famotidine (Pepcid) 20 mg PO BID [facility] Last Admin: 10/28/17 07:44 Dose: Not Given Fluticasone Propionate (Flonase Nasal [place]) 0 gm NASAL DAILY [facility] Last Admin: 10/28/17 07:45 Dose: Not Given Guaifenesin (Robitussin Sf) 200 mg PO Q4H [facility] Last Admin: 10/28/17 12:06 Dose: Not Given Hydralazine HCl (Apresoline) 10 mg SLOW IVP Q4H PRN PRN Reason: Systolic BP > 170 Levofloxacin (Levaquin) 500 mg PO 0600 [facility] Last Admin: 10/28/17 05:38 Dose: 500 mg Loratadine (Claritin) 10 mg PO DAILYPRN PRN PRN Reason: Sinus Symptoms Lorazepam (Ativan) 1 mg PO Q4H PRN PRN Reason: Anxiety/Agitation Last Admin: 10/28/17 07:55 Dose: 1 mg Mometasone Furoate/Formoterol Fumar (Dulera 200 Mcg/5 Mcg Inhaler) 2 puff INH BID-RT [facility] Last Admin: 10/28/17 06:33 Dose: 2 puff Morphine Sulfate (Morphine) 4 mg SLOW IVP Q4H PRN PRN Reason: PAIN-SEVERE Last Admin: 10/19/17 04:40 Dose: 4 mg Nitroglycerin (Nitrostat) 0.4 mg SL Q5MIN PRN PRN Reason: Chest Pain Nystatin (Mycostatin) 500,000 units SSW QID [facility] Last Admin: 10/28/17 07:43 Dose: 500,000 units Ondansetron HCl (Zofran) 4 mg IVP Q6H PRN PRN Reason: Nausea/Vomiting Amlodipine/Valsartan (Exforge) 10/160 Mg Tablet 0 each PO DAILY [facility] Last Admin: 10/28/17 07:45 Dose: 1 each Prednisone (Prednisone) 40 mg PO QAM-WM [facility] Last Admin: 10/28/17 07:43 Dose: 40 mg Senna (Senokot) 2 tab PO HSPRN PRN PRN Reason: Constipation Sodium Chloride (Flush - Normal Saline) 10 ml IVF Q12HR [facility] Last Admin: 10/28/17 07:45 Dose: 10 ml Sodium Chloride (Flush - Normal Saline) 10 ml IVF PRN PRN PRN Reason: Saline Flush Last Admin: 10/22/17 15:09 Dose: 10 ml Vitamin E (Vitamin E) 400 units PO DAILY [facility] Last Admin: 10/28/17 07:45 Dose: Not Given
--- NOTE | 2017-10-28 21:51 | PRG ---
DATE OF SERVICE: 10/28/2017 SUBJECTIVE: The patient has done reasonably well. She is walking in the arteaga. Her brother is in the room with her and I explained to her who important it is that she not smoke and that she go home and exercise, no drinking would be ideal, but probably not a reasonable request giv en her past history. PHYSICAL EXAMINATION: LUNGS: Clear today. HEART: Regular rhythm. ABDOMEN: Soft. We have set her up for trilogy nocturnal ventilation. She will taper from starting at 30 of predniso ne down to 10 mg a day of prednisone and see me in 3-4 weeks. A prescription was written. She has n ebulizer solution or other medicines at home.
--- NOTE | 2017-10-28 23:33 | DIS ---
DATE OF ADMISSION: 10/12/2017 DATE OF DISCHARGE: 10/28/2017 DISCHARGE DISPOSITION: To home. PRIMARY DISCHARGE DIAGNOSES: Acute on chronic obstructive pulmonary disease exacerbation, most likely end-stage chronic obstructive pulmonary disease; acute on chronic respiratory failure with hypoxia, resolving; sinus tachycardia. PROCEDURES DONE DURING HOSPITALIZATION: Echo with 2D Doppler done on the day of admission showed EF of 60%-65%. Chest x-ray showed hyperinflation with interstitial prominence suggestive of COPD, no acute infiltrate was seen. The patient has had full PFTs done, which showed findings of end-stage COPD. Her FEV1 was less than 40% predicted, blood cultures on the x2 no growth. H and H 12 and 34, platelet count 314. Discharge sodium of 127, BUN 12, creatinine 0.5, albumin is 3.2. TSH 0.7, free T4 is 1.04. DISCHARGE MEDICATIONS: Symbicort 160/4.5 mcg inhaler 2 puffs twice daily, amlodipine with valsartan 10/160 mg p.o. daily, vitamin D3 of 2000 units p.o. daily, digoxin 0.125 mg p.o. daily, Cardizem 60 mg p.o. daily, DuoNeb q.4 hourly p.r.n. Prednisone 30 mg p.o. daily for 6 days, then 20 mg p.o. daily for 10 days, then 10 mg p.o. daily. ALLERGIES: PENICILLIN, SULFA, and KEFLEX. INPATIENT CONSULT: Dr. Figueroa for Pulmonology. BRIEF COURSE DURING HOSPITALIZATION: The patient initially got admitted on the with complaints of shortness of breath. She initially presented to [facility] from where she was transferred here. She was initially placed on BiPAP and admitted to [facility]. Pulmonary consultation with Dr. Anthony/Dr. Figueroa was obtained. She was slowly weaned into nocturnal BiPAP. The patient has had a full PFT done on the , which showed very severe obstructive defect. She could not perform lung volume maneuver. Her FEV1 was less than 40% predicted. Case management consultation was obtained for Trilogy nocturnal volume ventilation. Once this is obtained, the patient will be shortly discharged home. If she qualifies for home O2, case management consultation has been placed for the same. She is otherwise hemodynamically stable and ambulating inside the room with oxygen. She is eating well and has been cleared for discharge by Dr. Figueroa. Please see a [id number] documentation on [facility] for the day of discharge. JEYSON
== END 2017-10-28 17:32 | disposition home or self-care (01) | DRG 189 ==
LOC: ERS 17:18 → IMCU/EMU 18:10 → T4-A 10-23 14:50
PROVIDERS: ADMIT Internal Medicine; ATTEND Internal Medicine
PROC: 5A09457 Assistance with Respiratory Ventilation, 24-96 Consecutive Hours, Continuous Positive Airway Pressure (ICD-10-PCS; 2017-10-12)
PROC: 5A09357 Assistance with Respiratory Ventilation, Less than 24 Consecutive Hours, Continuous Positive Airway Pressure (ICD-10-PCS; principal; 2017-10-19)
DX: J96.21 Acute and chronic respiratory failure with hypoxia (principal); E43 Unspecified severe protein-calorie malnutrition; Z99.81 Dependence on supplemental oxygen; E87.8 Other disorders of electrolyte and fluid balance, not elsewhere classified; J44.0 Chronic obstructive pulmonary disease with (acute) lower respiratory infection; J44.1 Chronic obstructive pulmonary disease with (acute) exacerbation; Z68.1 Body mass index [BMI] 19.9 or less, adult; E87.1 Hypo-osmolality and hyponatremia; I47.1 Supraventricular tachycardia; I10 Essential (primary) hypertension; Z87.891 Personal history of nicotine dependence; Z88.1 Allergy status to other antibiotic agents; Z88.0 Allergy status to penicillin; Z88.2 Allergy status to sulfonamides; F41.9 Anxiety disorder, unspecified; Z51.5 Encounter for palliative care; J96.12 Chronic respiratory failure with hypercapnia; F10.20 Alcohol dependence, uncomplicated; Z79.51 Long term (current) use of inhaled steroids; Z79.52 Long term (current) use of systemic steroids; J20.9 Acute bronchitis, unspecified; R53.81 Other malaise; E87.6 Hypokalemia
CPT/HCPCS: 36415; 71010; 80048; 80053; 82805; 83735; 84439; 84443; 85025; 93005; 93010; 93306; 94060; 94640; 94660; 96365; A4216; G8978-GP-CJ; G8978-GP-CK; G8979-GP-CH; G8980-GP-CK; G8987-GO-CJ; G8988-GO-CI; J1650; J2274; J3411; J3475; J7042; J7050; J7506; J7620

== ENCOUNTER 2019-01-02 14:16 | Emergency (ER) | payer MEDICARE ==
[2019-01-02 16:19] LABS: #Basophils 0.1 thou/uL (0.0-0.2); #Eosinphils 0.3 thou/uL (0.0-0.7); #Lymphocytes 1.8 thou/uL (1.20-3.40); #Monocytes 1.6 thou/uL (0.11-0.59); #Neutrophils 7.1 thou/uL (1.40-6.50); %Eosinophils 2.5 % (0.0-10.0); %Lymphocytes 16.5 % (21.0-51.0); %Monocytes 14.9 % (0.0-10.0); %Neutrophils 65.1 % (42.0-75.0); Hemoglobin 15.7 g/dL (12.0-16.0); Mean Corpuscular HGB CONC 32.6 g/dL (32.0-36.0); Mean Corpuscular Hemoglobin 29.5 pg (27.0-31.0); Mean Corpuscular Volume 90.3 fL (78.0-98.0); Platelet Count 313 thou/uL (130-400); RBC Distribution Width 12.9 % (11.5-14.5); Red Blood Cell (RBC) Count 5.31 mill/uL (4.20-5.40); White Blood Cell (WBC) Count 10.9 thou/uL (4.8-10.8)
[2019-01-02 16:39] LABS: ALT (SGPT) 22 U/L (8-55); AST (SGOT) 18 U/L (5-34); Albumin 4.5 g/dL (3.4-4.8); Alkaline Phosphatase 70 U/L (40-150); Anion Gap 14 mmol/L (10-20); BUN (Urea Nitrogen) 13 mg/dL (9.8-20.1); Bilirubin, Total 0.5 mg/dL (0.2-1.2); CK (CPK) 129 U/L (29-168); Calc. Creatinine Clearance 0 mL/min (70-130); Calcium 9.9 mg/dL (7.8-10.44); Carbon Dioxide 26 mmol/L (23-31); Chloride 103 mmol/L (98-107); Estimated GFR-MDRD 84; Globulin 2.9 g/dL (2.4-3.5); Glucose 82 mg/dL (83-110); Potassium 3.6 mmol/L (3.5-5.1); Protein, Total 7.4 g/dL (6.0-8.3); Sodium 139 mmol/L (136-145)
[2019-01-02 18:53] LABS: Acetaminophen Less than 6.0 mcg/mL (10.0-30.0); Alcohol Less than 10 mg/dL (Less than 10); Salicylate Less than 8.0 mg/dL (15.0-30.0)
--- NOTE | 2019-01-02 19:07 | CT ---
CT BRAIN WITHOUT CONTRAST: HISTORY: Seizure, status post stress test. Known history of seizures. FINDINGS: There is generalized ventricular and sulcal prominence. There is some decreased attenuation to the p eriventricular white matter, consistent with some chronic ischemic white matter change. There are no signs of intracerebral hemorrhage or extraaxial fluid collections. No mass lesion or mass effect. The mastoid air cells are clear. There is mucosal change in the left maxillary sinus. IMPRESSION: No acute intracranial abnormalities. POS: DEEPALI
[2019-01-02 19:34] LABS: Bilirubin Negative (Negative); Blood, Urine Negative (Negative); Clarity CLEAR (Clear); Glucose, Urine (Dipstick) Negative (Negative); Leukocyte Negative (Negative); Nitrite Negative (Negative); Protein, Urine (Dipstick) Negative (Neg-Trace); Specific Gravity, Urine 1.007 (1.002-1.036); Urobilinogen 0.2 mg/dL (0.2-1.0)
[2019-01-02 19:42] LABS: Amphetamine Not Detected (NotDetected); Barbiturates Screen Not Detected (NotDetected); Benzodiazepine Screen Not Detected (NotDetected); Cocaine Metabolite Screen Not Detected (NotDetected); Medtox Control Line Valid? VALID (VALID); Medtox Reader # READER 4; Methadone Not Detected (NotDetected); Methamphetamine Not Detected (NotDetected); Opiate Screen Not Detected (NotDetected); Oxycodone Screen Not Detected (NotDetected); Phencyclidine (PCP) Not Detected (NotDetected); THC/Cannabinoid Screen Not Detected (NotDetected); Tricyclic Screen Not Detected (NotDetected)
[2019-01-02] MEDS ORDERED: Ondansetron ODT 4 MG TAB ONE (19:44)
[2019-01-02] MEDS ORDERED: predniSONE 20 MG TAB ONE (19:44)
== END 2019-01-02 20:34 | disposition home or self-care (01) ==
LOC: ERS 14:16
DX: G40.89 Other seizures (principal); T78.40XA Allergy, unspecified, initial encounter; I25.10 Atherosclerotic heart disease of native coronary artery without angina pectoris; I10 Essential (primary) hypertension; J44.9 Chronic obstructive pulmonary disease, unspecified; Z87.891 Personal history of nicotine dependence; Z79.899 Other long term (current) drug therapy
CPT/HCPCS: 36415; 70450; 80053; 80306; 80307; 81003; 82140; 82550; 83690; 84146; 84484; 85025; 93005; Q0162

== ENCOUNTER 2019-05-08 06:14 | Day surgery (SDC) | payer MEDICARE ==
[2019-05-05 10:13] VITALS: BMI 19.8
[2019-05-08] MEDS ORDERED: Levofloxacin 500 mg/D5W 100 ml Premix Bag ONE (06:43)
[2019-05-08 06:48] LABS: #Basophils 0.1 thou/uL (0.0-0.2); #Eosinphils 0.2 thou/uL (0.0-0.7); #Monocytes 1.4 thou/uL (0.11-0.59); #Neutrophils 6.8 thou/uL (1.40-6.50); %Basophils 0.6 % (0.0-1.0); %Eosinophils 1.6 % (0.0-10.0); %Lymphocytes 18.8 % (21.0-51.0); %Monocytes 13.8 % (0.0-10.0); %Neutrophils 65.2 % (42.0-75.0); Hemoglobin 14.6 g/dL (12.0-16.0); Mean Corpuscular HGB CONC 32.9 g/dL (32.0-36.0); Mean Corpuscular Hemoglobin 29.4 pg (27.0-31.0); Mean Corpuscular Volume 89.2 fL (78.0-98.0); Mean Platelet Volume 7.6 fL (7.4-10.4); Platelet Count 314 thou/uL (130-400); RBC Distribution Width 12.4 % (11.5-14.5); Red Blood Cell (RBC) Count 4.98 mill/uL (4.20-5.40); White Blood Cell (WBC) Count 10.4 thou/uL (4.8-10.8)
[2019-05-08] MEDS ORDERED: Bupivacaine/Epinephrine 0.25% 30 ML VIAL ONE (06:49)
[2019-05-08] MEDS ORDERED: Lidocaine 2% PF 5 ML VIAL ONE (06:49)
[2019-05-08] MEDS ORDERED: Fentanyl 250 MCG/5 ML VIAL ONE (06:58)
[2019-05-08 07:08] LABS: ALT (SGPT) 18 U/L (8-55); AST (SGOT) 15 U/L (5-34); Albumin 4.6 g/dL (3.4-4.8); Alkaline Phosphatase 81 U/L (40-150); Anion Gap 17 mmol/L (10-20); BUN (Urea Nitrogen) 8 mg/dL (9.8-20.1); Bilirubin, Total 0.4 mg/dL (0.2-1.2); Calc. Creatinine Clearance 57 mL/min (70-130); Calcium 10.3 mg/dL (7.8-10.44); Carbon Dioxide 25 mmol/L (23-31); Chloride 102 mmol/L (98-107); Estimated GFR-MDRD 80; Globulin 2.9 g/dL (2.4-3.5); Glucose 87 mg/dL (83-110); Potassium 3.6 mmol/L (3.5-5.1); Protein, Total 7.5 g/dL (6.0-8.3); Sodium 140 mmol/L (136-145)
[2019-05-08] MEDS ORDERED: Midazolam HCl 2 mg/2 ml Vial ONE (07:21)
--- NOTE | 2019-05-08 07:51 | HP ---
CHIEF COMPLAINT: Chronic abdominal pain with history of possible internal hernia. HISTORY: A 73-year-old female, who has progressive abdominal distention and abdominal pain. She had a CT scan showing what appears to be internal hernia with some torsing of the mesentery. She is here for diagnostic laparoscopy and repair. PAST MEDICAL HISTORY: Significant for COPD and hypertension. PAST SURGICAL HISTORY: She has had a hysterectomy, cataract repair, hernia repair in 2016, and appendectomy in 1964. MEDICATIONS: 1. Exforge. 2. Prednisone. 3. Diltiazem. 4. Symbicort. 5. Ventolin. 6. Lasix. 7. Multivitamins. ALLERGIES: SHE HAS ALLERGIES TO PENICILLIN, SULFA, AND KEFLEX. FAMILY HISTORY: Cancer and heart disease. SOCIAL HISTORY: She is a former smoker. Occasional alcohol. PHYSICAL EXAMINATION: VITAL SIGNS: Height 63, weight 109, and body mass index 19.4. GENERAL: Thin, well-developed female, in no apparent distress. HEENT: Unremarkable. LUNGS: Clear. HEART: Regular rate and rhythm. ABDOMEN: Somewhat distended. No tenderness. EXTREMITIES: Good pulses. No pedal edema. ASSESSMENT: Possible internal hernia. PLAN: Diagnostic laparoscopy and repair. CONSENT: I have discussed planned procedure as well as risk of bleeding, infection, recurrence, and injury to bowel. She understands and gives informed consent. Job ID: [id number]
[2019-05-08] MEDS ORDERED: PROPOFOL 200 MG/20 ML VIAL ONE (11:26)
[2019-05-08] MEDS ORDERED: Glycopyrrolate 0.2 MG/ML 5 ML SYRINGE ONE (11:26)
[2019-05-08] MEDS ORDERED: Lidocaine 1% PF 5 ML VIAL ONE (11:26)
[2019-05-08] MEDS ORDERED: Ondansetron PF 4 MG/2 ML Vial ONE (11:26)
[2019-05-08] MEDS ORDERED: Rocuronium Bromide 10 MG/ML (10ML VIAL) ONE (11:26)
[2019-05-08] MEDS ORDERED: Dexamethasone 20 MG/5 ML VIAL ONE (11:26)
[2019-05-08] MEDS ORDERED: ePHEDrine 50 MG/ML VIAL ONE (11:26)
--- NOTE | 2019-05-08 12:08 | OP ---
DATE OF PROCEDURE: 05/08/2019 PREOPERATIVE DIAGNOSIS: Internal hernia. PROCEDURE PERFORMED: Diagnostic laparoscopy. INDICATIONS: A 73-year-old female, who has been having nausea frequent and central abdominal pain. A CT scan that showed what appeared to be internal hernia with swirling of the mesentery and a change in caliber of the small bowel. FINDINGS: Around the entire small bowel from ileocecal valve to ligament of Treitz. There was a transition zone from very small caliber small bowel to a more dilated small bowel in the central small bowel, but there was no tumor, no definite internal hernia, although it may have been reduced during running of the bowel. DESCRIPTION OF PROCEDURE: After informed consent was obtained, the patient was taken to the operating room, given general endotracheal anesthesia, placed in the supine position. Abdomen was prepped and draped in usual fashion. Local anesthesia was infiltrated subcutaneously and deep, and a 5-mm incision was performed in the left upper quadrant. Veress needle was inserted. Drop test was performed. Pneumoperitoneum was created to a volume of 2 L of carbon dioxide. Utilizing a bladeless 5 mm trocar and 0-degree laparoscope, direct visual entry into the abdominal cavity was performed. Pneumoperitoneum was created to a pressure of 15 mmHg. Under direct vision, two other 5 mm ports were placed, one left lower quadrant and right upper quadrant. The cecum was found. The terminal ileum was found. The ileum seemed much smaller in caliber than the proximal small bowel. I ran the small bowel from ileocecal valve proximally and about mid small bowel, there appeared to be more of a transition zone, where the bowel change caliber. There was no evidence of any kind of small bowel tumor. The mesentery was not inflamed. I did not see any inflammatory bowel condition, continued to run the small bowel proximally all the way to the ligament of Treitz. I did not see any kind of band adhesions or such that could be the source of this. I look down in the pelvis, there was a plug in the right groin from a previous hernia repair. The vaginal cuff looks fine from previous vaginal hysterectomy. The liver looked good. No inflammatory tissue within the abdominal cavity. The abdomen was decompressed. The scope was removed. The incisions were closed with interrupted 4-0 Rapide. Dermabond applied. The patient tolerated the procedure well, transferred to Recovery in good condition. Sponge and needle count verified correct x2. Job ID: [id number]
== END 2019-05-08 12:04 | disposition home or self-care (01) ==
LOC: SDC 06:14
PROVIDERS: ATTEND Surgery
PROC: 0WJP4ZZ Inspection of Gastrointestinal Tract, Percutaneous Endoscopic Approach (ICD-10-PCS; principal; 2019-05-08)
DX: R10.9 Unspecified abdominal pain (principal); G89.29 Other chronic pain; R11.0 Nausea; K63.89 Other specified diseases of intestine; J44.9 Chronic obstructive pulmonary disease, unspecified; I10 Essential (primary) hypertension; Z87.891 Personal history of nicotine dependence; Z87.19 Personal history of other diseases of the digestive system; Z90.710 Acquired absence of both cervix and uterus; Z90.89 Acquired absence of other organs; Z88.0 Allergy status to penicillin; Z88.1 Allergy status to other antibiotic agents; Z88.2 Allergy status to sulfonamides; Z79.891 Long term (current) use of opiate analgesic; Z79.899 Other long term (current) drug therapy
CPT/HCPCS: 36415; 80053; 85025; 93005; 93010; J1100; J1956; J2001; J2250; J2405; J2704; J3010; J3490

== ENCOUNTER 2019-09-25 09:46 | Outpatient (CLI) | payer MEDICARE ==
--- NOTE | 2019-09-25 10:01 | RAD ---
EXAM: Two views chest PROVIDED CLINICAL HISTORY: Dyspnea COMPARISON: Chest x-ray on 09/07/2019. FINDINGS: A loop recorder device again overlies the left mid chest. The cardiac silhouette and pulmonary vascul ature are within normal limits. A cavitary masslike lesion is again seen in the left upper lobe. The interstitial densities in the left upper lobe noted on the prior study have improved. Findings ma y be related to infectious process and possibly atypical infectious process such as post primary tuberculosis as noted on prior CT exam. Neoplastic process again cannot be entirely excluded. There i s suggestion of tiny nodular densities again noted in the region of the right lung apex. No new area of consolidation or pleural fluid is seen. The osseous structures have a normal appearance. Vasc ular calcifications are again seen in the thoracic aorta. IMPRESSION: Cavitary masslike density left upper lung zone with improvement in the adjacent interstitial opacitie s noted on the prior exam. Findings again could be related to infectious process and possibly atypical infectious process such as post primary tuberculosis. Neoplastic process cannot be entirely excluded.
== END 2019-09-25 09:47 | disposition home or self-care (01) ==
LOC: RAD 09:46
PROVIDERS: ATTEND Internal Medicine Critical Care Medicine
DX: R06.00 Dyspnea, unspecified (principal); J98.4 Other disorders of lung
CPT/HCPCS: 71046

== ENCOUNTER 2019-10-24 11:22 | Outpatient (CLI) | payer MEDICARE ==
--- NOTE | 2019-10-24 11:38 | RAD ---
EXAM: Chest 2 views: HISTORY: Dyspnea COMPARISON: 09/25/2019, 12/22/2016 FINDINGS: There is a normal-sized cardiomediastinal silhouette. A cardiac monitoring device project over the l eft chest wall. Stable opacity is seen in the left apex which likely represents scarring. However, this is new compared to the radiograph from 2017. There is no evidence of consolidation, mass, or pl eural effusion. The bones are unremarkable. IMPRESSION: Likely left upper lobe scarring
== END 2019-10-24 11:23 | disposition home or self-care (01) ==
LOC: RAD 11:22
PROVIDERS: ATTEND Internal Medicine Critical Care Medicine
DX: R06.00 Dyspnea, unspecified (principal)
CPT/HCPCS: 71046

== ENCOUNTER 2020-02-06 10:27 | Outpatient (CLI) | payer MEDICARE ==
--- NOTE | 2020-02-06 15:31 | PET ---
PET CT: HISTORY: Solitary pulmonary nodule. Exam requested to evaluate for suspected malignancy TECHNIQUE: PET scan with CT attenuation correction was performed from the base of the brain to the proximal thig hs following the intravenous administration of 10 mCi [id number] in the left antecubital fossa. COMPARISON: None. CORRELATION: CT chest without contrast dated 01/01/2020. FINDINGS: There are foci of increased FDG localization within the peripheral aspect of the cavitary mass in the left upper lobe with a maximum SUV of 12.2 in the suprahilar regions. No other hypermetabolic lung nodule is seen. No sid hypermetabolism is noted in the neck, chest, abdomen, pelvis, or inguinal regions. No hyper metabolic liver, adrenal, or skeletal lesions are identified. There is physiologic activity in the GI and tracts, heart, and visualized portions of the brain. The CT scan used for attenuation correction demonstrates no evidence of pleural effusions or ascites. IMPRESSION: Findings are highly suspicious for malignancy in the large left upper lobe cavitary lung mass noted o n the CT scan. POS: DEEPALI
== END 2020-02-06 10:28 | disposition home or self-care (01) ==
LOC: PET 10:27
PROVIDERS: ATTEND Internal Medicine Critical Care Medicine
DX: R91.1 Solitary pulmonary nodule (principal); R91.8 Other nonspecific abnormal finding of lung field
CPT/HCPCS: 78815; A9552

== ENCOUNTER 2020-08-21 09:28 | Outpatient (CLI) | payer MEDICARE ==
[2020-08-21 10:20] LABS: Estimated GFR-MDRD - POC Greater than 90
--- NOTE | 2020-08-21 13:33 | CT ---
CT Chest W Con History: Lung cancer Comparison: Chest radiograph July 22, 2020. CT chest December 2019 Findings: Partial collapse of the cavitary mass which is fluid-filled with nonenhancing debris. There is anterior displacement of the left major fissure relative to the prior exam. Overall the size of the mass is relatively similar although given the adjacent also lung aeration, the left upper lung vo lume has decreased. The largest transverse dimension of the mass axial image 15 is 6.2 cm. Posterior right upper lobe nodule/mass is new measuring up to 2 cm size. Previously described cavitat ion in the right lung apex is similar as well as the small adjacent 6 mm nodule. New left lower lobe mass axial image 34 measures 1.7 cm. No pneumothorax. No effusion. The right-sided ribs are intact. Low-grade undersurface remodeling of the anterior left first and sec ond ribs without erosive changes. Healing sternal fracture. T6 fracture with 50% anterior and 40% posterior height loss. There are also fractures of T12 and L1 a s well as L3. The T6 vertebral body is sclerotic. The T12 fracture has minimal posterior superior endplate retropulsion with 20% superior endplate heig ht loss and 10% anterior height loss. The L1 fracture is also an incomplete burst with 20% anterior height loss and minimal retropulsion of the posterior superior endplate. L3 fracture is primarily a s uperior endplate deformity with 20% height loss. Impression: 1. New right upper lobe and left lower lobe masses highly concerning for metastatic disease. 2. Decreased aeration of the cavitary mass with nonenhancing necrosis and solid component along the p osterior wall. Overall the size of this mass has not significantly increased. 3. Similar appearance left adrenal hypodensity which was not FDG avid on recent PET/CT, likely adenom a. 4. Abnormal sclerosis of the T6 vertebral body which is fractured concerning for pathologic fracture. 5. New thoracolumbar fractures as described.
== END 2020-08-21 09:29 | disposition home or self-care (01) ==
LOC: SCSCT 09:28
PROVIDERS: ATTEND Radiology Radiation Oncology
DX: C34.12 Malignant neoplasm of upper lobe, left bronchus or lung (principal); M89.9 Disorder of bone, unspecified; E27.8 Other specified disorders of adrenal gland
CPT/HCPCS: 71260; 82565

== ENCOUNTER 2020-09-10 10:46 | Outpatient (CLI) | payer MEDICARE ==
[~2020-09-10 10:46] MED LIST: Magnevist 469MG/ML 20 ML VIAL ONE
--- NOTE | 2020-09-10 13:31 | PET ---
Exam: PET scan with CT attenuation correction HISTORY: Malignant neoplasm of the left upper lobe bronchus. COMPARISON: 02/06/2020 Correlation: Chest CT 08/21/2020 TECHNIQUE: PET scan with CT attenuation correction was performed from the base of the brain to the pr oximal thighs finding intravenous administration of 11.0 mCi of F-18 fluorodeoxyglucose FINDINGS: Head and neck: No abnormal FDG localization CHEST: Redemonstration of a partially necrotic mass centered in the left upper lobe. The degree of FD G avidity has decreased. Previous areas of cavitation are now fluid-filled. There is a focus of FDG avidity with a maximum SUV of 3.3. Additional fossa FDG avidity along the peripheral aspect of the me sh SUV of 3.6. The overall extent of FDG avidity has a decreased implying partial response to therapy. On the CT used for attenuation correction, there is evidence of a nodule in the left lower l obe which has developed since the previous PET study and better demonstrated on the CT from 08/21/2020. This nodule does not demonstrate FDG avidity. Nevertheless, spiculated margins are worriso me for possible neoplastic process. There is a cavitary focus in the right upper lobe noted on CT used for attenuation correction which i s non-FDG avid. There is a age-related mass in the posterior aspect of the right upper lobe with a maximum SUV of 1.7. This nodule was not present on the previous PET study and is better demonstrated on CT from 08/21/2020. Hypermetabolic foci along the left and right atrium are felt to be artifactual. Abdomen and pelvis: Stable left adrenal gland hyperplasia, nonhypermetabolic. No abnormal FDG localiz ation in the abdomen or pelvis. Osseous structures: CT used for attenuation correction demonstrates a T6 compression fracture. Mild c ompression deformities of the superior endplate of T12 and L1 are noted. There is no evidence of FDG avidity. IMPRESSION: 1. Partial response to therapy in terms of the left upper lobe mass. Fluid attenuation in7 what was p reviously cavitation associated with a left upper lobe mass is noted. 2. There are 2 nonhypermetabolic masses in the right upper lobe and left lower lobe respectively. Tho ugh these masses are not FDG avid, there is still suspicion for malignancy/metastases given interval development between both PET studies 3. fractures involving the thoracic spine and thoracolumbar junction without FDG avidity. Osteoporoti c fractures are favored.
--- NOTE | 2020-09-10 15:07 | MRI ---
Exam: Brain MRI with and without contrast HISTORY: Lung cancer. Evaluate for intracranial metastases. COMPARISON: None FINDINGS: Gradient echo sequence: No hemorrhage Calvarium: Appropriate T1 marrow signal intensity Midline brain parenchyma: Unremarkable Cerebrum:No parenchymal mass, mass effect or midline shift. Age-appropriate brain volume. Cortical gr ay-white matter differentiation is preserved. Confluent T2 and FLAIR white matter hyperintensities due to chronic small vessel ischemic change. 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 Ventricles: No evidence of hydrocephalus. Sinuses and mastoid air cells: Adequate aeration Diffusion: Central arterial flow is maintained. Absent restricted diffusion. Postcontrast images: No pathologic enhancement of the brain parenchyma. IMPRESSION: 1. Age-appropriate atrophy. 2. Absent restricted diffusion. No acute infarct. 3. No pathologic enhancement the brain parenchyma 4. Extensive chronic small vessel ischemic changes of the white matter.
== END 2020-09-10 10:47 | disposition home or self-care (01) ==
LOC: PET 10:46
PROVIDERS: ATTEND Internal Medicine Hematology & Oncology
DX: C34.12 Malignant neoplasm of upper lobe, left bronchus or lung (principal); G93.89 Other specified disorders of brain; R91.8 Other nonspecific abnormal finding of lung field; S22.009A Unspecified fracture of unspecified thoracic vertebra, initial encounter for closed fracture
CPT/HCPCS: 70553; 78815; A9552; A9579